=== PATIENT | female | born 2000 | race African-American/Black ===

== ENCOUNTER 2022-07-06 22:57 | Emergency (ER) | payer OTHER, SELFPAY ==
--- NOTE | ~2022-07-06 | CT_ITS ---
EXAMINATION: CT HEAD WITHOUT CONTRAST CLINICAL INFORMATION: Seizure. Evaluate for bleed. COMPARISON: None TECHNIQUE: Contiguous axial imaging was performed from the skull base to vertex without intravenous administration of contrast. This CT examination was performed using dose optimization techniques as appropriate, variously including the following: *Automated exposure control *Adjustment of mA and/or kV according to patient size (this includes techniques or standardized protocols for targeted exams where dose is matched to indication/reason for exam; i.e. extremities or head) *Use of iterative reconstruction technique DLP: 680 mGy-cm FINDINGS: There is no evidence of acute intracranial hemorrhage or territorial infarction. No abnormal mass effect or midline shift is seen. [place] to white matter differentiation is well preserved. No extra-axial fluid collections are identified. No hydrocephalus. No significant volume loss. There is no abnormal attenuation within the brain parenchyma. No acute osseous or soft tissue abnormality. The mastoid air cells and visualized portions of the paranasal sinuses are well aerated. CT/CT head/brain wo IV con IMPRESSION: No acute intracranial pathology.
--- NOTE | 2022-07-06 23:21 | ED.SEIZURE ---
HPI - Seizure General Chief Complaint: Seizure Stated Complaint: seizure Time Seen by Provider: 07/06/22 23:13 Source: EMS Mode of arrival: EMS Limitations: other (Patient is not answering questions slowly but does not her head yes and no) History of Present Illness HPI Narrative: 22-year-old female who presents emergency department for possible seizure at home. The patient is currently nonverbal but does shake her head yes and no but is slow to respond to questions. According to the paramedics they got a call from the patient stating that she had a seizure, while the patient was on the 911 call she became unresponsive and paramedics were told that the patient was in cardiac arrest. When the paramedics arrived at the scene, the patient was postictal with a were concerned that she may be having focal seizures and they gave her Versed 1.5 mg intranasally. Paramedics state that the patient had very little food in her refrigerator but did have diabetic test strips and syringes in her apartment. Information was obtained from the patient [facility] manager of case. The patient does have a history seizures with her last seizure being in 2019. She has spastic cerebral palsy, diabetes mellitus and asthma. The patient lives independently Related Data Allergies Allergy/AdvReac Type Severity Reaction Status Date / Time No Known Allergies Allergy Verified 07/06/22 23:29 Review of Systems Review of Systems: Yes all other systems are reviewed and are negative [facility] Past Medical History [facility] Narrative: Past medical history: Diabetes mellitus, spastic cerebral palsy, asthma, seizure disorder with last seizure being in 2019. Pseudoseizures, anxiety Social history: The patient lives independently in an apartment. Social History Social History Advance Directives: No Physical Exam Vital Signs: Vital Signs: Last Vital Signs Temp 98.0 F 07/06/22 23:24 Pulse 120 H 07/06/22 23:24 Resp 22 H 07/06/22 23:24 BP 139/82 07/06/22 23:24 Pulse Ox 100 07/06/22 23:24 O2 Del Method 07/06/22 23:24 BMI result Body Mass Index 19.5 Vital signs revealed elevated heart rate of 120, elevated respiratory rate of 22 with a normal O2 saturation on room air and patient was afebrile Const: Other: Patient is awake, she is nonverbal, she does shake her head yes and no in does follow simple commands, she has very short stature and features consistent with cerebral palsy HEENT: Head: Yes normal to inspection and Yes atraumatic Ears: external ears normal General nose exam: Normal external nose present Face and sinus: Yes normal facial exam Mouth: Normal oral and palatal mucosa present Throat: Yes posterior oropharynx normal Eyes: General: appearance normal, both eyes and all related structures Neck: Neck: Yes normal visual inspection, Yes no lymphadenopathy, Yes trachea midline and Yes supple Chest: Chest palpation & inspection: normal inspection of the chest and normal palpation of entire chest wall Resp: Effort & Inspection: normal respiratory effort and able to speak in complete sentences Auscultation: clear to auscultation bilaterally Cardio: Rate: regular rate Rhythm: regular rhythm Heart sounds: S1 normal heart sound present, S2 normal heart sound present and no murmurs GI: Inspection: Yes normal to inspection Palpation (GI): Soft to palpation, nontender and no guarding Auscultation: normal bowel sounds : General: Yes no CVA tenderness Back/Spine/Pelvis: Back: no CVA tenderness Skin: General skin exam: no rashes or lesions noted Neuro: Other: Patient follow simple commands, she is nonverbal, she does move extremities appropriately Extrem: General: Yes normal to inspection Medications Administered Discontinued Medications Generic Name Dose Route Start Last Admin Trade Name Freq PRN Reason Stop Dose Admin Sodium Chloride 1,000 mls @ 999 mls/hr 07/06/22 23:47 07/06/22 23:54 Ns IV 07/07/22 00:47 999 mls/hr .Q1H1M STA Administration Medical Decision Making Medical Decision Making [facility] Narrative: 22-year-old female who presents to the emergency department for possible seizure, patient was found to be postictal by paramedics but they also suspected that she may be having focal seizures and gave her Versed 1.5 mg intranasally. The patient does have history of a seizure disorder, her last seizure was in 2019. It is unclear what seizure medication she is on since I do not have a medication list and no other information on the patient. At the time my evaluation the patient was tachycardic, tachypneic, awake but nonverbal, the patient may be postictal. I did order a laboratory evaluation to include CBC, CMP, PT/INR, PTT, lipase, lactic acid, urine drug screen, urinalysis, urine test, COVID-19, influenza, RSV testing 12 EKG. Patient will be treated with normal saline x1 L. 0118: The patient is now awake and alert can answer questions. She does admit to being under lot of stress. She is not certain if she had a seizure. She states she felt as if the room was closing in on her and then she passed out . She states she has had pseudoseizures before and she believes that the sensation was more consistent with her pseudo-seizure. She has been under increased stress. The patient states that [facility] is in ordered as a santoyo that helps her mainly with transportation and she does not use them for crisis counseling. The patient will be given the number to [facility] as well pain. Patient states that due to her mobility and she use she needs an ambulance to get back to her apartment. Patient will be kept in the emergency department till we can arrange transport Differential Diagnosis Differential Diagnoses: The differential diagnosis associated with the presentation includes Seizure, pseudo-seizure, alcohol intoxication, depression, anxiety Lab Data MDM Lab Attestation statement: I reviewed the patient's lab results. My independent interpretation of the lab are as follows: Elevated lactic acid of 2.2 most likely secondary to dehydration. The rest of her labs were unremarkable. Result Diagrams: 07/06/22 23:48 07/06/22 23:48 Labs: Lab Results 07/06/22 07/06/22 07/06/22 Range/Units 23:48 23:48 23:48 WBC 5.9 (4.8-10.8) X10*3/uL RBC 4.73 (4.20-5.50) X10*6/uL Hgb 12.6 (12.0-16.0) g/dl Hct 38.1 (37.0-47.0) % MCV 80.5 (80.0-98.0) fL MCH 26.6 L (27.0-33.0) pg MCHC 33.1 (31.0-35.0) g/dl RDW 13.2 (11.0-16.0) % Plt Count 336 (160-400) X10*3/uL MPV 9.0 L (9.4-12.3) fL Immature Gran % (Auto) 0.2 (0.0-0.4) % Neut % (Auto) 60.8 (45-73) % Lymph % (Auto) 29.8 (20-40) % [place] % (Auto) 8.2 (2-11) % Eos % (Auto) 0.5 (0-4) % Baso % (Auto) 0.5 (0-2) % Lymph # (Auto) 1.8 (1.2-4.9) X10*3/uL [place] # (Auto) 0.5 (0.1-1.2) X10*3/uL Eos # (Auto) 0.0 (0.0-0.4) X10*3/uL Baso # (Auto) 0.0 (0.0-0.2) X10*3/uL Abs Immat Gran (auto) 0.01 (0.00-0.03) X10*3/uL Absolute Neuts (auto) 3.6 (2.0-8.3) x10*3/uL Absolute Nucleated RBC 0.000 (0.0-0.012) X10*3/uL Nucleated RBC % (auto) 0.0 (0.0-0.2) /100WBC PT 12.6 (10.0-13.1) SEC INR 1.1 (0.9-1.1) APTT 31.2 (26.0-36.4) SEC Sodium 139 (135-145) mmol/L Potassium 4.0 (3.3-5.1) mmol/L Chloride 106 (96-108) mmol/L Carbon Dioxide 21 L (22-29) mmol/L Anion Gap 16 (12-20) BUN 17 H (9-16) mg/dL Creatinine 0.71 (0.5-1.4) mg/dL Estim Creat Clear Calc 66.1 Estimated GFR > 60 Random Glucose 114 (60-115) mg/dL Lactic Acid (0.5-2.0) mmol/L Calcium 9.5 (8.4-10.2) mg/dL Total Bilirubin 0.3 (0.0-1.0) mg/dL AST 25 (5-31) U/L ALT 30 (0-31) U/L Alkaline Phosphatase 60 (39-117) U/L Total Protein 7.4 (6.5-8.0) g/dL Albumin 4.5 (3.5-5.0) g/dL Lipase 39 (8-78) U/L Urine Color Urine Appearance Urine pH (5.0-9.0) Ur Specific [place] (1.005-1.025) Urine Protein (Neg-Trace) mg/dL Urine Glucose (UA) (Negative) mg/dL Urine Ketones (Negative) mg/dL Urine Blood (Negative) Urine Nitrite (Negative) Ur Leukocyte Esterase (Negative) Urine Test (NEGATIVE) Urine Opiates Screen (Not Detect) Urine Fentanyl Screen (Not Detect) Ur Barbiturates Screen (Not Detect) Ur Phencyclidine Scrn (Not Detect) Ur Amphetamines Screen (Not Detect) U Benzodiazepines Scrn (Not Detect) Urine Cocaine Screen (Not Detect) U Marijuana (THC) Screen (Not Detect) Ethyl Alcohol < 10 mg/dL Influenza Type A (PCR) (Negative) Influenza Type B (PCR) (Negative) RSV RNA Qual (PCR) (Negative) SARS-CoV-2 RNA (RT-PCR) (Negative) 07/06/22 07/06/22 07/07/22 Range/Units 23:48 23:50 01:15 WBC (4.8-10.8) X10*3/uL RBC (4.20-5.50) X10*6/uL Hgb (12.0-16.0) g/dl Hct (37.0-47.0) % MCV (80.0-98.0) fL MCH (27.0-33.0) pg MCHC (31.0-35.0) g/dl RDW (11.0-16.0) % Plt Count (160-400) X10*3/uL MPV (9.4-12.3) fL Immature Gran % (Auto) (0.0-0.4) % Neut % (Auto) (45-73) % Lymph % (Auto) (20-40) % [place] % (Auto) (2-11) % Eos % (Auto) (0-4) % Baso % (Auto) (0-2) % Lymph # (Auto) (1.2-4.9) X10*3/uL [place] # (Auto) (0.1-1.2) X10*3/uL Eos # (Auto) (0.0-0.4) X10*3/uL Baso # (Auto) (0.0-0.2) X10*3/uL Abs Immat Gran (auto) (0.00-0.03) X10*3/uL Absolute Neuts (auto) (2.0-8.3) x10*3/uL Absolute Nucleated RBC (0.0-0.012) X10*3/uL Nucleated RBC % (auto) (0.0-0.2) /100WBC PT (10.0-13.1) SEC INR (0.9-1.1) APTT (26.0-36.4) SEC Sodium (135-145) mmol/L Potassium (3.3-5.1) mmol/L Chloride (96-108) mmol/L Carbon Dioxide (22-29) mmol/L Anion Gap (12-20) BUN (9-16) mg/dL Creatinine (0.5-1.4) mg/dL Estim Creat Clear Calc Estimated GFR Random Glucose (60-115) mg/dL Lactic Acid 2.2 H* (0.5-2.0) mmol/L Calcium (8.4-10.2) mg/dL Total Bilirubin (0.0-1.0) mg/dL AST (5-31) U/L ALT (0-31) U/L Alkaline Phosphatase (39-117) U/L Total Protein (6.5-8.0) g/dL Albumin (3.5-5.0) g/dL Lipase (8-78) U/L Urine Color Yellow Urine Appearance Clear Urine pH 7.0 (5.0-9.0) Ur Specific [place] 1.015 (1.005-1.025) Urine Protein Negative (Neg-Trace) mg/dL Urine Glucose (UA) Negative (Negative) mg/dL Urine Ketones Negative (Negative) mg/dL Urine Blood Negative (Negative) Urine Nitrite Negative (Negative) Ur Leukocyte Esterase Negative (Negative) Urine Test (NEGATIVE) Urine Opiates Screen (Not Detect) Urine Fentanyl Screen (Not Detect) Ur Barbiturates Screen (Not Detect) Ur Phencyclidine Scrn (Not Detect) Ur Amphetamines Screen (Not Detect) U Benzodiazepines Scrn (Not Detect) Urine Cocaine Screen (Not Detect) U Marijuana (THC) Screen (Not Detect) Ethyl Alcohol mg/dL Influenza Type A (PCR) NEGATIVE (Negative) Influenza Type B (PCR) NEGATIVE (Negative) RSV RNA Qual (PCR) NEGATIVE (Negative) SARS-CoV-2 RNA (RT-PCR) NEGATIVE (Negative) 07/07/22 07/07/22 Range/Units 01:15 01:15 WBC (4.8-10.8) X10*3/uL RBC (4.20-5.50) X10*6/uL Hgb (12.0-16.0) g/dl Hct (37.0-47.0) % MCV (80.0-98.0) fL MCH (27.0-33.0) pg MCHC (31.0-35.0) g/dl RDW (11.0-16.0) % Plt Count (160-400) X10*3/uL MPV (9.4-12.3) fL Immature Gran % (Auto) (0.0-0.4) % Neut % (Auto) (45-73) % Lymph % (Auto) (20-40) % [place] % (Auto) (2-11) % Eos % (Auto) (0-4) % Baso % (Auto) (0-2) % Lymph # (Auto) (1.2-4.9) X10*3/uL [place] # (Auto) (0.1-1.2) X10*3/uL Eos # (Auto) (0.0-0.4) X10*3/uL Baso # (Auto) (0.0-0.2) X10*3/uL Abs Immat Gran (auto) (0.00-0.03) X10*3/uL Absolute Neuts (auto) (2.0-8.3) x10*3/uL Absolute Nucleated RBC (0.0-0.012) X10*3/uL Nucleated RBC % (auto) (0.0-0.2) /100WBC PT (10.0-13.1) SEC INR (0.9-1.1) APTT (26.0-36.4) SEC Sodium (135-145) mmol/L Potassium (3.3-5.1) mmol/L Chloride (96-108) mmol/L Carbon Dioxide (22-29) mmol/L Anion Gap (12-20) BUN (9-16) mg/dL Creatinine (0.5-1.4) mg/dL Estim Creat Clear Calc Estimated GFR Random Glucose (60-115) mg/dL Lactic Acid (0.5-2.0) mmol/L Calcium (8.4-10.2) mg/dL Total Bilirubin (0.0-1.0) mg/dL AST (5-31) U/L ALT (0-31) U/L Alkaline Phosphatase (39-117) U/L Total Protein (6.5-8.0) g/dL Albumin (3.5-5.0) g/dL Lipase (8-78) U/L Urine Color Urine Appearance Urine pH (5.0-9.0) Ur Specific [place] (1.005-1.025) Urine Protein (Neg-Trace) mg/dL Urine Glucose (UA) (Negative) mg/dL Urine Ketones (Negative) mg/dL Urine Blood (Negative) Urine Nitrite (Negative) Ur Leukocyte Esterase (Negative) Urine Test NEGATIVE (NEGATIVE) Urine Opiates Screen Not Detected (Not Detect) Urine Fentanyl Screen Not Detected (Not Detect) Ur Barbiturates Screen Not Detected (Not Detect) Ur Phencyclidine Scrn Not Detected (Not Detect) Ur Amphetamines Screen Not Detected (Not Detect) U Benzodiazepines Scrn POSITIVE H (Not Detect) Urine Cocaine Screen Not Detected (Not Detect) U Marijuana (THC) Screen POSITIVE H (Not Detect) Ethyl Alcohol mg/dL Influenza Type A (PCR) (Negative) Influenza Type B (PCR) (Negative) RSV RNA Qual (PCR) (Negative) SARS-CoV-2 RNA (RT-PCR) (Negative) Independent Interpretation I performed an independent interpretation of an: EKG Interpretation: My independent interpretation of the patient's EKG done at 23:42 is as follows, sinus tachycardia with rate of 122, normal [place], QRS and QTC intervals, no ST segment elevation, no ST segment depression, no PE a sees, no PVCs, no significant T-wave abnormalities except for the tachycardia this is a normal EKG. Radiology Impression Radiologist Impression: My independent hoop machine operator of the patient's CT scan of the brain is that there was no acute bleed or fracture. Radiology impression is there is no acute intracranial pathology 9 rear with this reading. Independent Historian Clinical information obtained from an independent historian. History obtained from or confirmed by: EMS [facility] case manager Social Determinants Patient?s care significantly limited by Social Determinants of Health including: Other Social Determinant of Health Patient is supported by [facility] but does not have crisis counseling therefore she will be referred to [facility]. Discharge Plan Discharge Clinical Impression: Pseudoseizure Patient Disposition: Home, Self-Care Additional Instructions: Your blood work was normal Your COVID-19, influenza and RSV tests were negative. The CT scan of your brain revealed no skull fracture or bleeding in the brain. Your presentation today is consistent with a pseudo-seizure. I believe that this was triggered by the stress that your under from the recent of the 2 people that are close to you. It may help if you talk to a crisis counselor. [facility] ([facility]) is an outpatient service available in the community that can help you. Their phone number is . You can call them and they can help you with stress, anxiety, PTSD and depression or any other psychiatric issues that you may have Follow-up with your doctor in 2 days. Please return to the emergency department if your symptoms get worse or if you develop any symptoms that are concerning to you.
[2022-07-06 23:24] VITALS: BP 130/73; BP 139/82; PULSE 120; PULSE 140; RESP 22; TEMP 36.7; O2SAT 100; BMI 19.5
--- NOTE | 2022-07-06 23:36 | ECG_ITS ---
Test Reason : SEIZURE Blood Pressure : / mmHG Vent. Rate : 122 BPM Atrial Rate : 122 BPM P-R Int : 118 ms QRS Dur : 076 ms QT Int : 308 ms P-R-T Axes : 073 070 001 degrees QTc Int : 438 ms Sinus tachycardia Nonspecific ST abnormality Abnormal ECG No previous ECGs available Referred By: Johnathan Khan Electronically Signed By:BURKE MENDEZ MD
[2022-07-06 23:54] LABS: Basophils Percent Auto 0.5 % (0-2); Eosinophils Percent Auto 0.5 % (0-4); Hematocrit 38.1 % (37.0-47.0); Hemoglobin 12.6 g/dl (12.0-16.0); Imm Gran Abs Auto 0.01 X10*3/uL (0.00-0.03); Imm Gran Pct Auto 0.2 % (0.0-0.4); Lymphocytes Absolute Auto 1.8 X10*3/uL (1.2-4.9); Lymphocytes Percent Auto 29.8 % (20-40); MANUAL DIFF FLAG NO; Mean Corpuscular HGB Conc 33.1 g/dl (31.0-35.0); Mean Corpuscular Hemoglobin 26.6 pg (27.0-33.0); Mean Corpuscular Volume 80.5 fL (80.0-98.0); Monocytes Absolute Auto 0.5 X10*3/uL (0.1-1.2); Monocytes Percent Auto 8.2 % (2-11); Neutrophils Absolute Auto 3.6 x10*3/uL (2.0-8.3); Neutrophils Percent Auto 60.8 % (45-73); Platelet Count 336 X10*3/uL (160-400); Red Blood Count 4.73 X10*6/uL (4.20-5.50); Red Cell Distribution Width 13.2 % (11.0-16.0); White Blood Count 5.9 X10*3/uL (4.8-10.8)
[2022-07-06] MEDS: 0.9 % Sodium Chloride 1,000 ML 999 ML IV (23:54)
[2022-07-07 00:01] LABS: INTERNATIONAL NORM RATIO 1.1 (0.9-1.1); Prothrombin Time 12.6 SEC (10.0-13.1)
[2022-07-07 00:03] LABS: Partial Thromboplastin Time 31.2 SEC (26.0-36.4)
[2022-07-07 00:14] LABS: Lactic Acid 2.2 mmol/L (0.5-2.0)
[2022-07-07 00:19] LABS: Alanine Aminotransferase 30 U/L (0-31); Albumin Level 4.5 g/dL (3.5-5.0); Alkaline Phosphatase 60 U/L (39-117); Anion Gap 16 (12-20); Aspartate Amino Transferase 25 U/L (5-31); Bilirubin Total 0.3 mg/dL (0.0-1.0); Blood Urea Nitrogen 17 mg/dL (9-16); Calcium 9.5 mg/dL (8.4-10.2); Carbon Dioxide 21 mmol/L (22-29); Chloride 106 mmol/L (96-108); Creatinine Clr Calc Pharmacy 66.1; Estimated Glomerular Filt Rate > 60; Ethanol < 10 mg/dL; Glucose Random 114 mg/dL (60-115); Lipase 39 U/L (8-78); Sodium 139 mmol/L (135-145); Total Protein 7.4 g/dL (6.5-8.0)
[2022-07-07 00:32] LABS: Influenza A PCR NEGATIVE (Negative); Influenza B PCR NEGATIVE (Negative); Resp Syncy Virus RNA Qual PCR NEGATIVE (Negative); SARS COV2 PCR INHOUSE NEGATIVE (Negative)
[2022-07-07 01:23] LABS: Appearance Urine Clear; Color Urine Yellow; Glucose Urine UA Negative (Negative); Leukocyte Esterase Urine Negative (Negative); Nitrite Urine Negative (Negative); Specific Gravity - Urine 1.015 (1.005-1.025); Urine Blood Negative (Negative); Urine Ketones Negative (Negative); Urine Protein Negative (Neg-Trace)
[2022-07-07 01:24] LABS: UPreg QC Valid YES; Urine Pregnancy NEGATIVE (NEGATIVE)
[2022-07-07 01:33] LABS: Amphetamine Screen Urine Not Detected (Not Detect); Barbiturates, Urine Not Detected (Not Detect); Benzodiazepines Screen Urine POSITIVE (Not Detect); Cannabinoid Screen Urine POSITIVE (Not Detect); Cocaine Screen Urine Not Detected (Not Detect); Fentanyl, urine Not Detected (Not Detect); Opiate Screen Urine Not Detected (Not Detect); Phencyclidine Screen Urine Not Detected (Not Detect)
[2022-07-07 01:52] LABS: Reflex Lactate? Lactic Acid Added
[2022-07-07 03:43] VITALS: BP 107/50; PULSE 77; RESP 18; TEMP 36.8; O2SAT 98
--- NOTE | 2022-07-07 03:44 | PC.NURSE ---
pt A+O x 4. pt belongings packed up with pt at discharge. discharge packet provided to pt. VSS. skin pwd. iv removed at discharge. pt verbalized understanding of discharge plan. ems [employer] to bring pt home
== END 2022-07-07 03:46 | disposition home or self-care (01) ==
PROVIDERS: Emergency Provider Emergency Medicine Emergency Medical Services
DX: R56.9 Unspecified convulsions (principal); Z79.899 Other long term (current) drug therapy; Z20.822 Contact with and (suspected) exposure to COVID-19
CPT/HCPCS: 0241U; 36415; 70450; 80053; 80307; 81003; 81025; 82077; 83605; 83690; 85025; 85610; 85730; 93005; 99284

== ENCOUNTER 2022-11-21 14:11 | Inpatient (IN) | payer OTHER, SELFPAY ==
[2022-11-21 14:24] VITALS: BP 155/74; BP 160/70; PULSE 110; PULSE 118; RESP 16; TEMP 36.6; O2SAT 97; BMI 22.9
--- NOTE | 2022-11-21 14:48 | PC.NURSE ---
Hearing voices, pt reports never having this happen before. Voices are telling her to hurt herself however she does not want to hurt herself.
--- NOTE | 2022-11-21 15:00 | ED_ITS ---
HPI - Psych General Chief Complaint: Psychiatric Symptoms Stated Complaint: seizure postictal per ems Time Seen by Provider: 11/21/22 14:51 Source: patient and EMS Mode of arrival: EMS Limitations: no limitations History of Present Illness HPI Narrative: 22 yo female with history of DM, spastic cerebral palsy, asthma, seizure disorder, pseudoseizures who presents to the ER for evaluation after she had an unwitnessed seizure at home. She reports not being on any seizure medication. She reports recently restarting Cymbalta, took 30 mg yesterday and 30 mg today. She used to be on 60 mg in the past but has been off of it for a long time. She added it back because her anxiety was high. She reports after taking the Cymblata she developed auditory hallucinations with voices telling her to harm herself. She states the voices told her to drink soap today. She said she did but does not know how much she drank. No vomiting. She denies any other ingestions. No drugs or alcohol. MD complaint: feels depressed and hallucinations Onset (ago): day(s) (2) Duration: getting worse History of same: Yes Relieving factors: none Exacerbating factors: medication Context: new medication(s) and significant life stressor Associated psychiatric symptoms: racing thoughts and auditory hallucinations Associated symptoms: confusion and nausea Treatments prior to arrival: placed on mental health hold If self harm: admits thoughts of self harm and has acted on plan Related Data Allergies Allergy/AdvReac Type Severity Reaction Status Date / Time No Known Allergies Allergy Verified 07/06/22 23:29 Review of Systems Review of Systems: Yes all other systems are reviewed and are negative [facility] Social History Social History Advance Directives: No Advance Directives Information Provided: No Physical Exam Vital Signs: Vital Signs: Last Vital Signs Temp 97.8 F 11/21/22 14:24 Pulse 118 H 11/21/22 14:24 Resp 16 11/21/22 14:24 BP 155/74 H 11/21/22 14:24 Pulse Ox 97 11/21/22 14:24 O2 Del Method Room Air 11/21/22 14:24 BMI result Body Mass Index 22.9 Appearance: Alert. Oriented X3. No acute distress. Head: normocephalic, atraumatic. Eyes: Pupils equal, round and reactive to light. ENT: Pharynx normal. No tonsillar swelling or exudate. Neck: Normal inspection. Neck supple. CVS: Normal heart rate and rhythm. Pulses normal. Respiratory: No respiratory distress. Breath sounds normal. Abdomen: Soft and nontender. +BS x4 Skin: Skin warm and dry. Normal skin color. Normal skin turgor. No rashes. Extremities: No lower extremity edema. No joint swelling. Neuro/psych: Oriented X 3. No motor deficit. No sensory deficit. CN II-XII intact. Normal speech and cognition. Does not make eye contact, varying mood, poor insight and judgment, anxious Course Reevaluation(s) Reevaluation #1: medical workup unremarkable. pending utox will place pt in physician obs. Physician observation started at 15:54. Patient placed in physician observation because patient is awaiting CARE team evaluation for the possible need of inpatient psych admission. At the time observation was started patient's vital signs were stable. Patient is alert and oriented. Neuro exam is non-focal. CV: RRR and lungs are clear. Will continue to monitor. Time: 15:54 Medical Decision Making Medical Decision Making [facility] Narrative: 22 yo female with history of DM, spastic cerebral palsy, asthma, seizure disorder, pseudoseizures who presents to the ER for evaluation after she had a possible unwitnessed seizure at home. HX recent visit to ER for pseudoseizures. Neurologically intact on arrival. Not post-ictal. Differential Diagnosis Differential Diagnoses: The differential diagnosis associated with the presentation includes recurrent seizure, pseudoseizure, substance induced mood disorder, acute psychosis, schizophrenia, schizoaffective disorder, PTSD, bipolar disorder, mari r depression with psychotic features Admission/Observation Consideration of admission/observation: Escalation of care including admission/o bservation considered Lab Data [facility] Lab Attestation statement: I reviewed the patient's lab results. 11/21/22 15:20 11/21/22 15:20 Labs: Lab Results 11/21/22 11/21/22 11/21/22 Range/Units 15:17 15:20 15:20 WBC 4.8 (4.8-10.8) X10*3/uL RBC 5.19 (4.20-5.50) X10*6/uL Hgb 13.3 (12.0-16.0) g/dl Hct 40.6 (37.0-47.0) % MCV 78.2 L (80.0-98.0) fL MCH 25.6 L (27.0-33.0) pg MCHC 32.8 (31.0-35.0) g/dl RDW 13.7 (11.0-16.0) % Plt Count 275 (160-400) X10*3/uL MPV 9.1 L (9.4-12.3) fL Immature Gran % (Auto) 0.0 (0.0-0.4) % Neut % (Auto) 62.6 (45-73) % Lymph % (Auto) 28.3 (20-40) % [place] % (Auto) 8.1 (2-11) % Eos % (Auto) 0.6 (0-4) % Baso % (Auto) 0.4 (0-2) % Lymph # (Auto) 1.4 (1.2-4.9) X10*3/uL [place] # (Auto) 0.4 (0.1-1.2) X10*3/uL Eos # (Auto) 0.0 (0.0-0.4) X10*3/uL Baso # (Auto) 0.0 (0.0-0.2) X10*3/uL Abs Immat Gran (auto) 0.00 (0.00-0.03) X10*3/uL Absolute Neuts (auto) 3.0 (2.0-8.3) x10*3/uL Absolute Nucleated RBC 0.000 (0.0-0.012) X10*3/uL Nucleated RBC % (auto) 0.0 (0.0-0.2) /100WBC Sodium 141 (135-145) mmol/L Potassium 3.6 (3.3-5.1) mmol/L Chloride 107 (96-108) mmol/L Carbon Dioxide 27 (22-29) mmol/L Anion Gap 11 L (12-20) BUN 10 (9-16) mg/dL Creatinine 0.65 (0.5-1.4) mg/dL Estim Creat Clear Calc 81.3 Estimated GFR > 60 Random Glucose 82 (60-115) mg/dL Calcium 9.9 (8.4-10.2) mg/dL Magnesium 2.1 (1.6-2.6) mg/dL Total Bilirubin 0.5 (0.0-1.0) mg/dL Direct Bilirubin 0.1 (0.0-0.5) mg/dL AST 19 (5-31) U/L ALT 15 (0-31) U/L Alkaline Phosphatase 66 (39-117) U/L Total Creatine Kinase 105 (26-140) U/L Total Protein 7.3 (6.5-8.0) g/dL Albumin 4.4 (3.5-5.0) g/dL Ethyl Alcohol < 10 mg/dL COVID-19 (JOHANNY) Negative (Negative) COVID-19 Clin Com See Note Independent Historian Clinical information obtained from an independent historian. History obtained from or confirmed by: EMS External Record Review External record reviewed: Outpatient record, Prior outpatient labs and Prior outpatient radiology Prescription Management I considered prescription management with: Other (antipsychotic) Chronic Conditions Patient?s care impacted by: Other (anxiety) Discharge Plan Discharge Clinical Impression: Auditory hallucination Patient Disposition: Still a Patient Interventions: [place]-Suicide Risk Severity Scale Last Done: 11/21/22 14:28
[2022-11-21 15:29] LABS: MANUAL DIFF FLAG NO
[2022-11-21 15:32] LABS: Basophils Percent Auto 0.4 % (0-2); Eosinophils Percent Auto 0.6 % (0-4); Hematocrit 40.6 % (37.0-47.0); Hemoglobin 13.3 g/dl (12.0-16.0); Lymphocytes Absolute Auto 1.4 X10*3/uL (1.2-4.9); Lymphocytes Percent Auto 28.3 % (20-40); Mean Corpuscular HGB Conc 32.8 g/dl (31.0-35.0); Mean Corpuscular Hemoglobin 25.6 pg (27.0-33.0); Mean Corpuscular Volume 78.2 fL (80.0-98.0); Mean Platelet Volume 9.1 fL (9.4-12.3); Monocytes Absolute Auto 0.4 X10*3/uL (0.1-1.2); Monocytes Percent Auto 8.1 % (2-11); Neutrophils Percent Auto 62.6 % (45-73); Platelet Count 275 X10*3/uL (160-400); Red Blood Count 5.19 X10*6/uL (4.20-5.50); Red Cell Distribution Width 13.7 % (11.0-16.0); White Blood Count 4.8 X10*3/uL (4.8-10.8)
[2022-11-21 15:44] LABS: COVID-19 Test Negative (Negative); IDNOW Serial# BCCEAD1C
[2022-11-21 15:50] LABS: Alanine Aminotransferase 15 U/L (0-31); Albumin Level 4.4 g/dL (3.5-5.0); Alkaline Phosphatase 66 U/L (39-117); Aspartate Amino Transferase 19 U/L (5-31); Bilirubin Direct 0.1 mg/dL (0.0-0.5); Bilirubin Total 0.5 mg/dL (0.0-1.0); Blood Urea Nitrogen 10 mg/dL (9-16); Calcium 9.9 mg/dL (8.4-10.2); Carbon Dioxide 27 mmol/L (22-29); Chloride 107 mmol/L (96-108); Creatinine Clr Calc Pharmacy 81.3; Estimated Glomerular Filt Rate > 60; Ethanol < 10 mg/dL; Glucose Random 82 mg/dL (60-115); Magnesium 2.1 mg/dL (1.6-2.6); Potassium 3.6 mmol/L (3.3-5.1); Sodium 141 mmol/L (135-145); Total Protein 7.3 g/dL (6.5-8.0)
[2022-11-21 15:52] LABS: Anion Gap 11 (12-20)
[2022-11-21 17:03] LABS: Acetaminophen LAB < 17 mcg/mL (<30); Salicylate < 5.0 mg/dL (15-30)
--- NOTE | 2022-11-21 17:26 | PC.NURSE ---
Pt denies hearing any voices at this time, states she thinks it was due to the medication change. Continues to deny si/hi, awaiting care team consult
[2022-11-21 18:29] VITALS: BP 108/55; PULSE 65; RESP 18; TEMP 36.9; O2SAT 97
[2022-11-21] MEDS: Acetaminophen 325 MG TABLET 650 MG PO (18:45)
--- NOTE | 2022-11-21 21:02 | PC.NURSE ---
Pt resting quietly in bed at this time. Pt is A&Ox4, GCS 15. Pt reports she is not hearing voices or seeing anything at this time but reports that earlier, the voices were telling her to hurt herself. Pt would not disclose how they said to hurt herself. Pt denies any suicidal or homicidal thoughts at this time. Pt is being changed into behavioral health attire and belongings are secured. Pt phone is charging at the attendance secretary's desk at this time. Pt is aware that we are waiting for a urine sample, stated she will let us know when she needs to void.
--- NOTE | 2022-11-21 21:14 | PC.NURSE ---
This RN contacting the Care Team regarding consult. Per Care Team, they have been waiting for UA prior to eval. Per Care Team, they messaged the nurse to make her aware of the reason for the delay in the eval. hyperbaric technologist at bedside attempting to obtain UA.
[2022-11-21 21:33] LABS: Appearance Urine Clear; Color Urine Yellow; Glucose Urine UA Negative (Negative); Leukocyte Esterase Urine Negative (Negative); Nitrite Urine Negative (Negative); Specific Gravity - Urine 1.015 (1.005-1.025); Urine Blood Negative (Negative); Urine Ketones Negative (Negative); Urine Protein Negative (Neg-Trace)
[2022-11-21 21:35] LABS: UPreg QC Valid YES; Urine Pregnancy NEGATIVE (NEGATIVE)
[2022-11-21 21:43] LABS: Amphetamine Screen Urine Not Detected (Not Detect); Barbiturates, Urine Not Detected (Not Detect); Benzodiazepines Screen Urine Not Detected (Not Detect); Cannabinoid Screen Urine Not Detected (Not Detect); Cocaine Screen Urine Not Detected (Not Detect); Fentanyl, urine Not Detected (Not Detect); Opiate Screen Urine Not Detected (Not Detect); Phencyclidine Screen Urine Not Detected (Not Detect)
--- NOTE | 2022-11-21 21:45 | PC.NURSE ---
Suzie RN speaking to HAIDER as pt has become increasingly anxious and is now requesting to leave. This RN contacting Care Team regarding an ETA for eval due to increasing anxiety and her requests to leave. Sitter at bedside due to vague SI.
--- NOTE | 2022-11-21 22:16 | PC.NURSE ---
Care Team at bedside for eval.
--- NOTE | 2022-11-21 22:48 | PC.NURSE ---
Per Garth from the Care Team, plan for patient to be placed on a Section 12 and to be an inpatient bedsearch.
[2022-11-21 22:54] VITALS: BP 117/75; PULSE 88; RESP 16; TEMP 36.7; O2SAT 97
--- NOTE | 2022-11-21 23:10 | PC.NURSE ---
Care Team at bedside notifying patient of Sec [address] Pt aware that she is unable to leave at this time. Pt crying, tearful while discussing plan with Garth.
--- NOTE | 2022-11-22 01:25 | PC.NURSE ---
PHONE NUMBERS [phone] A Geothermal Technician - Sarah Primary contact, is the person to call if pt needs anything from home [phone] Acute Care - call for transportation at discharge [phone] Brother - Gume
--- NOTE | 2022-11-22 01:32 | PC.NURSE ---
Pt resting quietly at this time. Pt is on a section 12, she has been changed over and has a sitter at the bedside. Pt has no complaints at this time. Pt is an inpatient bedsearch at this time.
[2022-11-22 01:40] VITALS: BP 117/64; PULSE 65; RESP 16; TEMP 36.6; O2SAT 98
[2022-11-22] MEDS: LORazepam 1 MG TABLET PO (04:51)
--- NOTE | 2022-11-22 04:58 | PC.NURSE ---
Pt requesting something for anxiety. verbal ordered 1mg ativan PO. Pt stated that she is hearing multiple personalities. saying the positive one is fearful, the negative one is telling her you're gonna , you're gonna . Pt stated she can hear all of the personalities and it gets loud inside. Pt reported she dealt with similar episodes when she was younger and managed to control it, but has been unable to control it this time. Pt had moments in conversation where she looked off into the distance, occasionally talking to the voices. Pt remains calm and cooperative with a sitter at the bedside. Waiting bedsearch in the morning.
[2022-11-22 06:29] VITALS: RESP 17
[2022-11-22 08:30] VITALS: RESP 16
--- NOTE | 2022-11-22 09:39 | PHA.MEDREC ---
Pharmacy Consult ? Medication Reconciliation Pharmacy has completed the medication reconciliation. Patient is not divulging information to us at this time. Per rn case management, only aware of duloxetine but does state that patient is very select on who she divulges information to bailee
--- NOTE | 2022-11-22 10:16 | MHC.CARE ---
DDU inpatient bedsearch exhausted due to bed availability. Per [facility] no DDU beds available today. RAD Team will follow up and search will continue tomorrow if deemed necessary.
--- NOTE | 2022-11-22 11:06 | MHC.CARE ---
CARE Team met spoke with Pts DDS worker Aníbal [phone] who reported she is new to client. She reported she has DDS services for developmental disability. ?She reports that she has historical dx of mood disorder, anxiety disorder, depressive disorder. Pt additionally has asthma and cerebral palsy. ?Pt currently lives in a MHA apartment alone. Pts MHA contacts are Sarah - [employer]? ([phone]) and Kayla ([phone]). Pt utilizes [facility] for psychiatric services and sees Leonardo Singh and she is unaware of Pts therapists name as Pt declines DDS movie shot cameraman that information. Pt uses [facility] ([phone]) for transportation services and has Brother Gume ([phone]).
--- NOTE | 2022-11-22 14:02 | PC.NURSE ---
Sarah who is her supervisor photostat would like to be called with any updates and her cell number [phone]
[2022-11-23 01:06] VITALS: BP 118/63; PULSE 67; RESP 16; TEMP 36.6; O2SAT 100
--- NOTE | 2022-11-23 04:23 | PC.NURSE ---
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
[2022-11-23 10:59] VITALS: BP 127/81; PULSE 96; TEMP 36.2; O2SAT 98
--- NOTE | 2022-11-23 16:00 | PC.ADMIT ---
pt is a 22 year old female admitted from [facility] pod secondary to command hallucinations telling her to harm herself, after reportedly starting Cymbalta again. Pt reported voices told her to drink liquid hand soap and she complied. Pts S supervisor finishing room called police and EMS. Pt reports that she also was told to cut herself and that she almost did. Pt reporting 4 different personalities. Pt resides at [facility] independent supervised living. Pt has CP and ambulates with bilateral crutches. Pt has Hx of spastic CP, asthma, seizure and pseudo seizure disorders. Pt came up to floor at 10:15 and admission process was completed. Provider was notified, Treatment plan done, patient placed on 5 minute checks to monitor for safety. Patient was cooperative and participated in the admission process.
[2022-11-23 18:00] VITALS: BP 115/64; PULSE 82; TEMP 36.6; O2SAT 96
[2022-11-24 06:00] VITALS: BP 113/66; PULSE 76; RESP 18
[2022-11-24 08:08] LABS: Cholesterol 221 mg/dL; HDL Cholesterol 64 mg/dL; LDL Cholesterol Calculated 146 mg/dl; Triglycerides 57 mg/dL
[2022-11-24] MEDS: lamoTRIgine 25 MG TABLET PO (08:18)
[2022-11-24 08:24] LABS: Free T4 (Free Thyroxine) 1.08 ng/dL (0.71-1.85)
[2022-11-24 08:30] LABS: Estimated Average Glucose 100 mg/dL; Hemoglobin A1c % 5.1 %
[2022-11-24 08:36] LABS: Folate 17.1 ng/mL (> or = 4.0); Thyroid Stimulating Hormone 1.13 uIU/mL (0.32-4.0); Vitamin B12 500 pg/mL (200-900)
--- NOTE | 2022-11-24 13:54 | PC.NURSE ---
Pt signed a 3 day notice today. 3 day will be up on 11/28/22. Doctor and social work notified.
--- NOTE | 2022-11-24 15:41 | P.HPPS_ITS ---
HPI Date of Service: 11/23/22 Chief Complaint: Psychosis, spastic cerebal palsy, seizure disorder Sources of Information: patient interviewed, chart reviewed and crisis/core team assessment reviewed HPI Subjective Notes: Conditional Voluntary and 3 Day Narrative: 22 yo female, referred by DDS as they manage her supervised apartment for CAH to self harm. Reports stopping meds 4 months ago (Cymbalta) and restarting with sx of voices telling her to self harm and suicide. Reports she has four different personalities- a child, a fearful person, an angry person, and an aggressive male dominent person. Past Psychiatric History: IP: Affirms, not aware of details-for anxiety, depression. CHD: Dr. Singh SA: Denies Trials: Remeron, Atarax, Sertraline, Cymbalta Medical Evaluation Reviewed: Yes [facility] Medical History (Updated 11/24/22 @ 15:58 by Tressa Mora, TROUBLE DISPATCHER) PTSD (post-traumatic stress disorder) Narrative: DM Spastic Cerebral Palsy Asthma Seizure Disorder Pseudoseizure Disorder Family History: Both parents with mental health and substance use issues Social History: Lives in a DDS supervised living apartment Childhood and upbringing were traumatic, as a result she did not want to have too much discussion about these Substance History: she denies Trauma History: Affirms Diagnostics Vital Signs (24Hr): Vital Signs - 24 hr 11/23/22 18:00 11/24/22 06:00 Temperature 97.9 F Pulse Rate 82 76 Respiratory Rate 18 Blood Pressure 115/64 113/66 Pulse Oximetry 96 Oxygen Delivery Method Room Air Room Air BMI result Body Mass Index 22.9 Labs 11/21/22 15:20 11/21/22 15:20 Labs: Laboratory Results - last 48 hr 11/24/22 11/24/22 11/24/22 07:10 07:10 07:10 Estimat Average Glucose 100 Hemoglobin A1c % 5.1 Magnesium 2.0 Triglycerides 57 Cholesterol 221 LDL Cholesterol, Calc 146 HDL Cholesterol 64 Vitamin B12 500 Folate 17.1 TSH 1.13 Free T4 1.08 Meds/Allergies Meds Home Medications Medication Instructions Recorded Confirmed Type duloxetine 30 mg capsule,delayed 30 mg PO DAILY 11/22/22 11/22/22 History release Allergies Allergies Allergy/AdvReac Type Severity Reaction Status Date / Time sertraline [From Zoloft] Allergy Unknown Verified 11/22/22 11:19 Mental Status Exam Mental Status Exam Patient Appearance: Appropriate Patient Orientation: Person, Place, Time and Situation Level of Consciousness: Alert Patient Behavior: Appropriate, Talkative, Cooperative and Good Eye Contact Mood Description: Depressed, Anxious and Apprehensive Affect Description: Flat Patient Cognition Impaired: No Ability to Follow Directions: Good Speech Pattern: Spontaneous Speech Memory Description: Episodic Impaired Hallucinations: Auditory Perceptual Disturbances: Depersonalization and Derealization Thought Process: Distracted and Rumination Thought Content: positive for [place], positive for Circumstantial and positive for Suicidal Ideation Depressive Symptoms: Increased Anxiety and Thoughts of /Suicide Judgement: Fair Assessment & Plan Assessment & Plan (1) PTSD (post-traumatic stress disorder): Status: Acute Code(s): F43.10 - Post-traumatic stress disorder, unspecified Plan 22 yo female, resident of a DDS supervised apartment to ER with reports of CAH to self harm due to her report of different personalities presenting with different mood states. Reports CAH after she re-started Cymbalta after several months of not taking this medication. Plan: Olanzapine 5 mg q 4 h prn psychosis Lamictal 25 mg daily Patient educated on: diagnosis, medication risk/benefits and therapeutic strategies Informed Consent: further education needed Reason for continued inpatient stay Substantial Risk for: rapid decompensation Statement Statement: I have reviewed the history and physical and performed a pertinent examination on my patient. No changes have occurred unless specified. If the History and Physical was not performed prior to admission, the Hospitalist's service will be consulted for completing the admission physical. Time Spent With Patient Time: Total time managing care of this patient today ____ minutes.
--- NOTE | 2022-11-24 16:02 | P.PNPSI_ITS ---
Subjective Subjective Date of Service: 11/24/22 Reason For Visit: Psychosis, spastic cerebal palsy, seizure disorder Subjective Notes: Conditional Voluntary and 3 Day Interim History: Three day notice filed. Has important ortho appts on 11/27 and 11/29- CT at [facility] on 11/29 to learn of options for left leg procedure. Reports feeling improved. Tolerating Lamictal. Open to PTSD education. Discussed Remeron trial, 3.75 mg hs-she has used Remeron before with positive ef fect Engaged with peers in milieu. Asking to discharge on 11/26. Checks changed to 15 minute Reviewed with team. Medication Compliance: Yes Side effects from medications: No Attending Groups: Yes Review of Systems Acute medical concerns: No Medical Review of Systems: unchanged Mental Status Exam Mental Status Exam Patient Appearance: Appropriate Patient Orientation: Person, Place, Time and Situation Level of Consciousness: Alert Patient Behavior: Appropriate, Talkative, Cooperative and Good Eye Contact Mood Description: Depressed and Apprehensive Affect Description: Flat Patient Cognition Impaired: No Ability to Follow Directions: Good Speech Pattern: Spontaneous Speech Memory Description: Episodic Impaired Perceptual Disturbances: Depersonalization and Derealization Thought Process: Distracted and Rumination Thought Content: positive for [place] and positive for Circumstantial Depressive Symptoms: Increased Anxiety Judgement: Good Diagnostics Vital Signs (24Hr): Vital Signs - 24 hr 11/23/22 18:00 11/24/22 06:00 Temperature 97.9 F Pulse Rate 82 76 Respiratory Rate 18 Blood Pressure 115/64 113/66 Pulse Oximetry 96 Oxygen Delivery Method Room Air Room Air BMI result Body Mass Index 22.9 Labs 11/21/22 15:20 11/21/22 15:20 Labs: Laboratory Results - last 48 hr 11/24/22 11/24/22 11/24/22 07:10 07:10 07:10 Estimat Average Glucose 100 Hemoglobin A1c % 5.1 Magnesium 2.0 Triglycerides 57 Cholesterol 221 LDL Cholesterol, Calc 146 HDL Cholesterol 64 Vitamin B12 500 Folate 17.1 TSH 1.13 Free T4 1.08 Medications Medications Current Medications Acetaminophen (Acetaminophen 325 Mg Tablet) 650 mg PO Q6H PRN PRN Reason: Headache/Pain Mild Scale (1-3) Lamotrigine (Lamotrigine 25 Mg Tablet) 25 mg PO DAILY [facility] Last Admin: 11/24/22 08:18 Dose: 25 mg Magnesium Hydroxide (Milk Of Magnesia 30 Ml Oral.Susp) 30 ml PO DAILY PRN PRN Reason: Constipation Olanzapine (Olanzapine 5 Mg Tablet) 5 mg PO Q4H PRN PRN Reason: psychosis Pharmacy Consult (Consult Rx Perform Med Rec) 1 each MISCELLANE ONCE PRN PRN Reason: Consult order Trazodone HCl (Trazodone Hcl 50 Mg Tablet) 50 mg PO BEDTIME MRX1 PRN PRN Reason: Insomnia Allergies Allergies Allergy/AdvReac Type Severity Reaction Status Date / Time sertraline [From Zoloft] Allergy Unknown Verified 11/22/22 11:19 Assessment & Plan Assessment & Plan (1) PTSD (post-traumatic stress disorder): Status: Acute Code(s): F43.10 - Post-traumatic stress disorder, unspecified Plan 22 yo female, resident of a DDS supervised apartment to ER with reports of CAH to self harm due to her report of different personalities presenting with different mood states. Reports CAH after she re-started Cymbalta after several months of not taking this medication. Plan: Olanzapine 5 mg q 4 h prn psychosis Lamictal 25 mg daily 11/24/22- Three day notice of intent filed- pt reports she has important ortho appts to attend. Mirtazapine 3.75 mg HS Patient educated on: other Informed Consent: understands and further education needed Reason for continued inpatient stay Substantial Risk for: rapid decompensation Time Spent With Patient Time: Total time managing care of this patient today ____ minutes.
[2022-11-24 18:00] VITALS: BP 108/62; PULSE 93; TEMP 37.2; O2SAT 99
[2022-11-25 06:00] VITALS: BP 112/74; PULSE 80; RESP 16; TEMP 36.6
[2022-11-25] MEDS: lamoTRIgine 25 MG TABLET PO (09:11)
--- NOTE | 2022-11-25 14:54 | HO.PSYCHPN ---
Subjective Subjective Date of Service: 11/25/22 Reason For Visit: Psychosis, spastic cerebal palsy, seizure disorder Subjective Notes: Conditional Voluntary and 3 Day Interim History: Pt reports feeling calmer, but reports is hard to be here. She denies suicidal or homicidal ideation. She reports sleep is poor here and at home. She denies VH/AH. She does not report delusional content nor she does appear internally preoccupied. She reports she is here due to medication mistake. Pt tearful when talking about losing people throughout her life. She reports I grew up in the system, I have no one. Medication Compliance: Yes Review of Systems Review of Systems Yes all other systems are reviewed and are negative Reports behavioral changes Psychiatric: Reports anxiety, Reports behavioral changes, Reports depression, Reports difficulty concentrating, Reports auditory hallucinations, Reports hopelessness, Reports irritability, Reports anhedonia, Reports mood swings, Reports paranoia and Reports suicidal ideation Mental Status Exam Mental Status Exam Patient Appearance: Appropriate Patient Orientation: Person, Place, Time and Situation Level of Consciousness: Alert Patient Behavior: Appropriate, Talkative, Cooperative and Good Eye Contact Mood Description: Depressed and Apprehensive Affect Description: Flat Patient Cognition Impaired: No Ability to Follow Directions: Good Speech Pattern: Spontaneous Speech Memory Description: Episodic Impaired Diagnostics Vital Signs (24Hr): Vital Signs - 24 hr 11/24/22 18:00 11/25/22 06:00 Temperature 99 F 98 F Pulse Rate 93 80 Respiratory Rate 16 Blood Pressure 108/62 112/74 Pulse Oximetry 99 Oxygen Delivery Method Room Air BMI result Body Mass Index 22.9 Labs 11/21/22 15:20 11/21/22 15:20 Labs: Laboratory Results - last 48 hr 11/24/22 11/24/22 11/24/22 07:10 07:10 07:10 Estimat Average Glucose 100 Hemoglobin A1c % 5.1 Magnesium 2.0 Triglycerides 57 Cholesterol 221 LDL Cholesterol, Calc 146 HDL Cholesterol 64 Vitamin B12 500 Folate 17.1 TSH 1.13 Free T4 1.08 Medications Medications Current Medications Acetaminophen (Acetaminophen 325 Mg Tablet) 650 mg PO Q6H PRN PRN Reason: Headache/Pain Mild Scale (1-3) Lamotrigine (Lamotrigine 25 Mg Tablet) 25 mg PO DAILY [facility] Last Admin: 11/25/22 09:11 Dose: 25 mg Magnesium Hydroxide (Milk Of Magnesia 30 Ml Oral.Susp) 30 ml PO DAILY PRN PRN Reason: Constipation Olanzapine (Olanzapine 5 Mg Tablet) 5 mg PO Q4H PRN PRN Reason: psychosis Pharmacy Consult (Consult Rx Perform Med Rec) 1 each MISCELLANE ONCE PRN PRN Reason: Consult order Trazodone HCl (Trazodone Hcl 50 Mg Tablet) 50 mg PO BEDTIME MRX1 PRN PRN Reason: Insomnia Allergies Allergies Allergy/AdvReac Type Severity Reaction Status Date / Time sertraline [From Zoloft] Allergy Unknown Verified 11/22/22 11:19 Assessment & Plan Assessment & Plan (1) PTSD (post-traumatic stress disorder): Status: Acute Code(s): F43.10 - Post-traumatic stress disorder, unspecified Plan 22 yo female, resident of a DDS supervised apartment to ER with reports of CAH to self harm due to her report of different personalities presenting with different mood states. Reports CAH after she re-started Cymbalta after several months of not taking this medication. Plan: Olanzapine 5 mg q 4 h prn psychosis Lamictal 25 mg daily 11/24/22- Three day notice of intent filed- pt reports she has important ortho appts to attend. Mirtazapine 3.75 mg HS 11/25 continue tx. taking meds. 3 day. Reason for continued inpatient stay Substantial Risk for: harm to self Time Spent With Patient Time: Total time managing care of this patient today ____ minutes.
[2022-11-25 20:15] VITALS: BP 122/74; PULSE 78; TEMP 37; O2SAT 98
[2022-11-25] MEDS: OLANZapine 5 MG TABLET PO (20:23)
[2022-11-26 08:40] VITALS: BP 113/63; PULSE 64; RESP 18; TEMP 36.8; O2SAT 100
[2022-11-26] MEDS: lamoTRIgine 25 MG TABLET PO (09:46)
[2022-11-26 18:00] VITALS: BP 123/76; PULSE 80
--- NOTE | 2022-11-26 19:29 | HO.PSYCHPN ---
Subjective Subjective Date of Service: 11/26/22 Reason For Visit: Psychosis, spastic cerebal palsy, seizure disorder Subjective Notes: Conditional Voluntary and 3 Day Healthcare Proxy: No Guardianship: No Medical Problems Affecting Mental Status: No Interim History: Preparing for discharge as she has ortho appointments on 11/26 that have taken a significant time to schedule. Expressed anger with her out patient team for her perceived lack of support. States she takes responsibility for her health care and appointments and most of the time, feels treated as a child by the DDS team and not respected. States this increases her anxiety, then I will blackout and the personalities come up . Prefers weekly therapy and does have interest in [facility] and [facility]. Appt with Dr. Singh was rescheduled as she is a hospital discharge. Medication Compliance: Yes Side effects from medications: No Attending Groups: Yes Review of Systems Acute medical concerns: No Medical Review of Systems: unchanged Mental Status Exam Mental Status Exam Patient Appearance: Appropriate Patient Orientation: Person, Place, Time and Situation Level of Consciousness: Alert Patient Behavior: Appropriate, Talkative, Cooperative and Good Eye Contact Mood Description: Depressed and Apprehensive Affect Description: Flat Patient Cognition Impaired: No Ability to Follow Directions: Good Speech Pattern: Spontaneous Speech Memory Description: Episodic Impaired Diagnostics Vital Signs (24Hr): Vital Signs - 24 hr 11/25/22 20:15 11/26/22 08:40 11/26/22 18:00 Temperature 98.6 F 98.2 F Pulse Rate 78 64 80 Respiratory Rate 18 Blood Pressure 122/74 113/63 123/76 Pulse Oximetry 98 100 Oxygen Delivery Method Room Air Room Air BMI result Body Mass Index 22.9 Labs 11/21/22 15:20 11/21/22 15:20 Medications Medications Current Medications Acetaminophen (Acetaminophen 325 Mg Tablet) 650 mg PO Q6H PRN PRN Reason: Headache/Pain Mild Scale (1-3) Lamotrigine (Lamotrigine 25 Mg Tablet) 25 mg PO DAILY [facility] Last Admin: 11/26/22 09:46 Dose: 25 mg Magnesium Hydroxide (Milk Of Magnesia 30 Ml Oral.Susp) 30 ml PO DAILY PRN PRN Reason: Constipation Olanzapine (Olanzapine 5 Mg Tablet) 5 mg PO Q4H PRN PRN Reason: psychosis Olanzapine (Olanzapine 5 Mg Tablet) 5 mg PO BEDTIME [facility] Last Admin: 11/26/22 18:58 Dose: Not Given Pharmacy Consult (Consult Rx Perform Med Rec) 1 each MISCELLANE ONCE PRN PRN Reason: Consult order Trazodone HCl (Trazodone Hcl 50 Mg Tablet) 50 mg PO BEDTIME MRX1 PRN PRN Reason: Insomnia Allergies Allergies Allergy/AdvReac Type Severity Reaction Status Date / Time sertraline [From Zoloft] Allergy Unknown Verified 11/22/22 11:19 Assessment & Plan Assessment & Plan (1) PTSD (post-traumatic stress disorder): Status: Acute Code(s): F43.10 - Post-traumatic stress disorder, unspecified Plan 22 yo female, resident of a DDS supervised apartment to ER with reports of CAH to self harm due to her report of different personalities presenting with different mood states. Reports CAH after she re-started Cymbalta after several months of not taking this medication. Plan: Olanzapine 5 mg q 4 h prn psychosis Lamictal 25 mg daily 11/24/22- Three day notice of intent filed- pt reports she has important ortho appts to attend. Mirtazapine 3.75 mg HS 11/25 continue tx. taking meds. 3 day. Patient educated on: medication risk/benefits and therapeutic strategies Informed Consent: understands Reason for continued inpatient stay Substantial Risk for: rapid decompensation Time Spent With Patient Time: Total time managing care of this patient today ____ minutes.
[2022-11-27] MEDS: lamoTRIgine 25 MG TABLET PO (09:36)
[2022-11-27 09:39] VITALS: BP 129/66; PULSE 73; RESP 18; TEMP 36.4; O2SAT 100
--- NOTE | 2022-11-27 13:45 | P.DS_ITS ---
DS: Providers Provider Date of Service: 11/27/22 Date of admission: 11/23/22 10:15 Date of discharge: 11/27/22 Primary care physician: Casey Johnson III, MD Admitting clinician: Tressa Mora Attending physician on admission: Enrique De Anda Attending physician on discharge: Enrique De Anda Discharging clinician: Tressa Mora DS: Diagnosis Discharge Diagnosis (1) PTSD (post-traumatic stress disorder): Status: Acute DS: Medications Discharge Medications Home Medications: Previous Rx's Medication Instructions Recorded lamotrigine 25 mg tablet 25 mg PO DAILY #30 tabs 11/26/22 olanzapine 5 mg tablet 5 mg PO BEDTIME #15 tabs 11/26/22 Mental Status Exam Mental Status Exam Patient Appearance: Appropriate Patient Orientation: Person, Place, Time and Situation Level of Consciousness: Alert Patient Behavior: Appropriate, Talkative, Cooperative and Good Eye Contact Mood Description: Apprehensive Affect Description: Flat Patient Cognition Impaired: No Ability to Follow Directions: Good Speech Pattern: Spontaneous Speech Memory Description: Episodic Impaired Data Data Completed and Pending Completed studies during hospitalization [Text1]: 11/21/22 11/21/22 11/21/22 15:17 15:20 15:20 WBC 4.8 RBC 5.19 Hgb 13.3 Hct 40.6 MCV 78.2 L MCH 25.6 L MCHC 32.8 RDW 13.7 Plt Count 275 MPV 9.1 L Immature Gran % (Auto) 0.0 Neut % (Auto) 62.6 Lymph % (Auto) 28.3 [place] % (Auto) 8.1 Eos % (Auto) 0.6 Baso % (Auto) 0.4 Lymph # (Auto) 1.4 [place] # (Auto) 0.4 Eos # (Auto) 0.0 Baso # (Auto) 0.0 Abs Immat Gran (auto) 0.00 Absolute Neuts (auto) 3.0 Absolute Nucleated RBC 0.000 Nucleated RBC % (auto) 0.0 Sodium 141 Potassium 3.6 Chloride 107 Carbon Dioxide 27 Anion Gap 11 L BUN 10 Creatinine 0.65 Estim Creat Clear Calc 81.3 Estimated GFR > 60 Random Glucose 82 Estimat Average Glucose Hemoglobin A1c % Calcium 9.9 Magnesium 2.1 Total Bilirubin 0.5 Direct Bilirubin 0.1 AST 19 ALT 15 Alkaline Phosphatase 66 Total Creatine Kinase 105 Total Protein 7.3 Albumin 4.4 Triglycerides Cholesterol LDL Cholesterol, Calc HDL Cholesterol Vitamin B12 Folate TSH Free T4 Urine Color Urine Appearance Urine pH Ur Specific [place] Urine Protein Urine Glucose (UA) Urine Ketones Urine Blood Urine Nitrite Ur Leukocyte Esterase Urine Test Salicylates < 5.0 L Urine Opiates Screen Urine Fentanyl Screen Acetaminophen < 17 Ur Barbiturates Screen Ur Phencyclidine Scrn Ur Amphetamines Screen U Benzodiazepines Scrn Urine Cocaine Screen U Marijuana (THC) Screen Ethyl Alcohol < 10 COVID-19 (JOHANNY) Negative COVID-19 Clin Com See Note 11/21/22 11/21/22 11/21/22 21:23 21:23 21:23 WBC RBC Hgb Hct MCV MCH MCHC RDW Plt Count MPV Immature Gran % (Auto) Neut % (Auto) Lymph % (Auto) [place] % (Auto) Eos % (Auto) Baso % (Auto) Lymph # (Auto) [place] # (Auto) Eos # (Auto) Baso # (Auto) Abs Immat Gran (auto) Absolute Neuts (auto) Absolute Nucleated RBC Nucleated RBC % (auto) Sodium Potassium Chloride Carbon Dioxide Anion Gap BUN Creatinine Estim Creat Clear Calc Estimated GFR Random Glucose Estimat Average Glucose Hemoglobin A1c % Calcium Magnesium Total Bilirubin Direct Bilirubin AST ALT Alkaline Phosphatase Total Creatine Kinase Total Protein Albumin Triglycerides Cholesterol LDL Cholesterol, Calc HDL Cholesterol Vitamin B12 Folate TSH Free T4 Urine Color Yellow Urine Appearance Clear Urine pH 6.0 Ur Specific [place] 1.015 Urine Protein Negative Urine Glucose (UA) Negative Urine Ketones Negative Urine Blood Negative Urine Nitrite Negative Ur Leukocyte Esterase Negative Urine Test NEGATIVE Salicylates Urine Opiates Screen Not Detected Urine Fentanyl Screen Not Detected Acetaminophen Ur Barbiturates Screen Not Detected Ur Phencyclidine Scrn Not Detected Ur Amphetamines Screen Not Detected U Benzodiazepines Scrn Not Detected Urine Cocaine Screen Not Detected U Marijuana (THC) Screen Not Detected Ethyl Alcohol COVID-19 (JOHANNY) COVID-19 Global Weather Com 11/24/22 11/24/22 11/24/22 07:10 07:10 07:10 WBC RBC Hgb Hct MCV MCH MCHC RDW Plt Count MPV Immature Gran % (Auto) Neut % (Auto) Lymph % (Auto) [place] % (Auto) Eos % (Auto) Baso % (Auto) Lymph # (Auto) [place] # (Auto) Eos # (Auto) Baso # (Auto) Abs Immat Gran (auto) Absolute Neuts (auto) Absolute Nucleated RBC Nucleated RBC % (auto) Sodium Potassium Chloride Carbon Dioxide Anion Gap BUN Creatinine Estim Creat Clear Calc Estimated GFR Random Glucose Estimat Average Glucose 100 Hemoglobin A1c % 5.1 Calcium Magnesium 2.0 Total Bilirubin Direct Bilirubin AST ALT Alkaline Phosphatase Total Creatine Kinase Total Protein Albumin Triglycerides 57 Cholesterol 221 LDL Cholesterol, Calc 146 HDL Cholesterol 64 Vitamin B12 500 Folate 17.1 TSH 1.13 Free T4 1.08 Urine Color Urine Appearance Urine pH Ur Specific [place] Urine Protein Urine Glucose (UA) Urine Ketones Urine Blood Urine Nitrite Ur Leukocyte Esterase Urine Test Salicylates Urine Opiates Screen Urine Fentanyl Screen Acetaminophen Ur Barbiturates Screen Ur Phencyclidine Scrn Ur Amphetamines Screen U Benzodiazepines Scrn Urine Cocaine Screen U Marijuana (THC) Screen Ethyl Alcohol COVID-19 (JOHANNY) COVID-19 Clin Com DS: Summary Hospital Course Hospital Course: Admission to adult psychiatry for exacerbation of symptoms of PTSD. Hx of seizure and spastic cerebral palsy. 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 She reported stopping all medications approximately 4 months ago and was willing to trial a new regime to assist with sx mgt. Cymbalta was discontinued. Lamictal and Olanzapine were initiated, tolerated and pt reports beginning symptom relief. She participated in the milieu fully. She signed a three day notice of intent as she has important follow up orthopedic appointments for possible surgeries to assist in ease of her mobility. She will call and or return as needed. Time spent discussing smoking cessation with patient: 3 to 10 minutes Status at Discharge Functional status at discharge: uses cane/walker (crutches) Overall status at discharge: patient is progressing back to baseline Time Spent with Patient Time attestation: Total time managing care of this patient today ____ minutes. Time spent: Greater than 30 minutes Discharge Plan Discharge Anticipated Discharge Date/Time: 11/27/22 12:00 Patient Disposition: Home, Self-Care Discharge Diagnosis: PTSD Referrals: [facility] [Other] - 11/28/22 (fax- [phone] The Visiting RN will be contacting you to arrange for coming out to see you on 11/28/22. ) [facility] w [facility] [Other] - 11/29/22 10:00 am (In person.) [facility]yche/Medication Provider w Dr. Singh [Other] - 12/09/22 2:00 pm (Telehealth) Casey Johnson III, MD [Primary Care Provider] - (Office will call you directly to schedule follow up) Discharge Medications: New olanzapine 5 mg Tablet 5 mg PO BEDTIME Qty: 15 1RF lamotrigine 25 mg Tablet 25 mg PO DAILY Qty: 30 0RF Discontinued duloxetine 30 mg capsule,delayed release(DR/EC) 30 mg PO DAILY Discharge Orders: Discharge Order (Routine); Ordered 11/27/22 Ordered By: Tressa Mroa Diet: Advance to usual diet Activity on Discharge: As tolerated Stand Alone Forms: Patient Portal Discharge page, Community Support Care Plan Goals: Mood and Behavioral Stabilization Health Concerns: Mood and Behavioral Stabilization Plan of Treatment: Attend scheduled out patient appointments Take medications as directed Call/Return as needed Assessment: Pt interviewed prior to discharge and found to be fully oriented and without SI/HI. Pt has insight and demonstrates good judgment in terms of wanting to pursue treatment. Pt is not in imminent risk of harm to self or others and has a safety plan that includes presenting to the closest ER or calling 911 if feeling unsafe. Pt has been observed closely by nursing and unit staff throughout admission Pt has not engaged in any behaviors that suggest dangerousness to self or others and has demonstrated appropriate behaviors and impulse control. Discharge Date/Time: 11/27/22 11:30
== END 2022-11-27 11:30 | disposition home or self-care (01) | DRG 755 ==
LOC: HO.ED 11-23 10:40 → HO.PM5 11-23 10:43
PROVIDERS: Clinical Nurse Specialist Psychiatric/Mental Health, Adult; Physician Assistant; Admitting Provider Psychiatry & Neurology Psychiatry; Emergency Provider Emergency Medicine Emergency Medical Services; PCP Internal Medicine; Visit Provider Psychiatry & Neurology Psychiatry
DX: F43.10 Post-traumatic stress disorder, unspecified (principal); G40.909 Epilepsy, unspecified, not intractable, without status epilepticus; G80.1 Spastic diplegic cerebral palsy; Z20.822 Contact with and (suspected) exposure to COVID-19; Z88.8 Allergy status to other drugs, medicaments and biological substances; Z79.899 Other long term (current) drug therapy
CPT/HCPCS: 36415; 80048; 80061; 80076; 80143; 80179; 80307; 81003; 81025; 82550; 82607; 82746; 83036; 83735; 84439; 84443; 85025; 87635; 99285; S9485

== ENCOUNTER 2023-02-06 00:09 | Emergency (ER) | payer OTHER, SELFPAY ==
[2023-02-06 00:15] VITALS: BP 118/72; PULSE 88; BMI 20.9
[2023-02-06 00:35] VITALS: BP 130/75; PULSE 108; RESP 20; TEMP 36.5; O2SAT 99
[2023-02-06] MEDS: ALPRAZolam 0.5 MG TABLET PO (01:29)
[2023-02-06] MEDS: Ondansetron ODT 4 MG TAB.RAPDIS TRANSLINGU (01:29)
--- NOTE | 2023-02-06 01:35 | ED.ANXIETY ---
HPI - Anxiety General Chief Complaint: Anxiety Stated Complaint: anxiety Time Seen by Provider: 02/06/23 01:08 Source: patient Mode of arrival: ambulatory Limitations: no limitations History of Present Illness HPI narrative: Patient will History of anxiety/panic disorder with history of PTSD been having poor sleep and increased anxiety for the last few days taking olanzapine more often but unable to sleep still feeling anxious denies any substance abuse no SI Related Data Previous Rx's Medication Instructions Recorded lamotrigine 25 mg tablet 25 mg PO DAILY #30 tabs 11/26/22 olanzapine 5 mg tablet 5 mg PO BEDTIME #15 tabs 11/26/22 alprazolam 0.5 mg tablet 0.5 mg PO BID PRN anxiety #14 tabs 02/06/23 Allergies Allergy/AdvReac Type Severity Reaction Status Date / Time sertraline [From Zoloft] Allergy Unknown Verified 11/22/22 11:19 Review of Systems Review of Systems: Yes all other systems are reviewed and are negative PMFSH Past Medical History Medical History PTSD (post-traumatic stress disorder) Social History Social History Household Members: None Housing: Apartment Housing Other:: Supervised/supported living Do you presently have visiting nurse or other home services: No Alcohol intake: never Patient Tobacco Use Status: Never used Tobacco Smoked in Last 30 Days: No e-Cigarette/Vaping Use: Never Used Second Hand Smoke Exposure: No Substance Use Type: Marijuana Advance Directives: No Advance Directives Information Provided: No Patient : No service: No Sexual orientation: Straight/Heterosexual Physical Exam Vital Signs: Vital Signs: Last Vital Signs Temp 98.7 F 02/06/23 01:59 Pulse 77 02/06/23 01:59 Resp 17 02/06/23 01:59 BP 121/66 02/06/23 01:59 Pulse Ox 98 02/06/23 01:59 O2 Del Method Room Air 02/06/23 01:59 BMI result Body Mass Index 20.9 Appearance: Alert. Oriented X3. No acute distress. Anxious Eyes: PERRLA, No Nystagmus ENT: Pharynx normal. Oral Mucosa moist Neck: Normal inspection. Neck supple. CVS: Normal heart rate and rhythm. Pulses normal. Respiratory: No respiratory distress. Equal air entry bilateral, no wheezing/rales/rhonchi Abdomen: Soft and nontender. Bowel sounds are present, no mass palpable, no CVA tenderness Skin: Skin warm and dry. Normal skin color. Normal skin turgor. Extremities: No lower extremity edema. No calf tenderness Neuro: Oriented X 3. No motor deficit. No sensory deficit.No cerebellar signs , cranial nerves II-XII intact Medications Administered Discontinued Medications Generic Name Dose Route Start Last Admin Trade Name Andrewq PRN Reason Stop Dose Admin Alprazolam 0.5 mg 02/06/23 01:17 02/06/23 01:29 Alprazolam 0.5 Mg Tablet PO 02/06/23 01:18 0.5 mg ONCE ONE Administration Bisacodyl 10 mg 02/06/23 01:35 02/06/23 01:39 Bisacodyl 5 Mg Tablet.Dr PO 02/06/23 01:36 10 mg ONCE ONE Administration Ondansetron HCl 4 mg 02/06/23 01:17 02/06/23 01:29 Ondansetron Odt 4 Mg Tab.Rapdis TRANSLINGU 02/06/23 01:18 4 mg ONCE ONE Administration Medical Decision Making Medical Decision Making MDM Narrative: Patient PTSD with anxiety will give Xanax for increased anxiety and discharged on alprazolam advised to follow-up with her therapist she has plan to Discharge Plan Discharge Clinical Impression: PTSD (post-traumatic stress disorder), Acute anxiety Patient Disposition: Home, Self-Care Instructions: Post Traumatic Stress Disorder (ED), Anxiety (ED) Additional Instructions: Continue medications as prescribed by therapist start taking alprazolam 0.5 mg 2 times a day as needed for anxiety Prescriptions: New alprazolam 0.5 mg tablet 0.5 mg PO BID PRN (Reason: anxiety) Qty: 14 0RF No Action olanzapine 5 mg Tablet 5 mg PO BEDTIME Qty: 15 1RF lamotrigine 25 mg Tablet 25 mg PO DAILY Qty: 30 0RF
[2023-02-06] MEDS: bisacodyL 5 MG TABLET.DR 10 MG PO (01:39)
[2023-02-06 01:59] VITALS: BP 121/66; PULSE 77; RESP 17; TEMP 37.1; O2SAT 98
--- NOTE | 2023-02-06 04:26 | PC.NURSE ---
Patient reports cramp like mid abdominal pain 01/13. + BSx4. Dr. Thomas notified, verbal order received for Tylenol 650 mg PO.
[2023-02-06] MEDS: Acetaminophen 325 MG TABLET 650 MG PO (04:33)
--- NOTE | 2023-02-06 08:24 | MHC.EDTECH ---
Emptied commode, replaced liner then assisted patient on to commode. Assisted patient with personal hygiene the assisted getting back into bed. Taylor Wren
== END 2023-02-06 08:40 | disposition home or self-care (01) ==
PROVIDERS: Emergency Provider Internal Medicine
DX: F41.1 Generalized anxiety disorder (principal); F43.0 Acute stress reaction; F43.10 Post-traumatic stress disorder, unspecified
CPT/HCPCS: 99283; 99284

== ENCOUNTER 2023-09-10 14:53 | Emergency (ER) | payer OTHER, SELFPAY ==
[2023-09-10 15:09] VITALS: BP 137/7; PULSE 85; RESP 18; TEMP 37.1; O2SAT 100; BMI 20.5
--- NOTE | 2023-09-10 15:16 | ED_ITS ---
HPI - Recheck/Abnormal Lab/Rx General Chief Complaint: Recheck/Abnormal Lab/Rx Stated Complaint: Abnormal labs Source: patient Mode of arrival: ambulatory Limitations: no limitations History of Present Illness HPI narrative: 23 year old female with a past medical history of PTSD and heavy menses presents to the emergency department for concerns of worsening anemia and increased fatigue for the past couple days. She reports she had her blood work checked yesterday to primary care office and her hemoglobin was 11.5. She states she contacted her primary care provider earlier today recommended that she present to the emergency department further evaluation. She denies any shortness of breath, chest pain, abdominal pain, nausea, vomiting, diarrhea, constipation, melena, hematochezia, changing in gait Pertinent positives and negatives discussed in HPI Related Data Previous Rx's Medication Instructions Recorded lamotrigine 25 mg tablet 25 mg PO DAILY #30 tabs 11/26/22 olanzapine 5 mg tablet 5 mg PO BEDTIME #15 tabs 11/26/22 alprazolam 0.5 mg tablet 0.5 mg PO BID PRN anxiety #14 tabs 02/06/23 Allergies Allergy/AdvReac Type Severity Reaction Status Date / Time sertraline [From Zoloft] Allergy Unknown Verified 09/10/23 15:14 Review of Systems 2 Review of Systems: Yes all other systems are reviewed and are negative PMFSH Past Medical History Medical History PTSD (post-traumatic stress disorder) Social History Social History Household Members: None Housing: Apartment Housing Other:: Supervised/supported living Do you presently have visiting nurse or other home services: No Alcohol intake: never Patient Tobacco Use Status: Never used Tobacco e-Cigarette/Vaping Use: Never Used Second Hand Smoke Exposure: No Substance Use Type: Marijuana service: No Sexual orientation: Straight/Heterosexual Physical Exam 2 Vital Signs: Vital Signs: Last Vital Signs Temp 98.6 F 09/10/23 16:35 Pulse 82 09/10/23 16:35 Resp 20 09/10/23 16:35 BP 110/69 09/10/23 16:35 Pulse Ox 99 09/10/23 16:35 O2 Del Method Room Air 09/10/23 16:35 BMI result Body Mass Index 20.5 Nursing notes and vital signs reviewed. GENERAL APPEARANCE: A&0 x 4, generally well appearing, no acute distress HENMT: Normal to inspection, atraumatic, face symmetrical. Normal external ears, nose, and oropharynx clear. EYE: PERRLA, EOM intact, structures appear normal NECK: Supple without stiffness or restricted ROM. HEART: Normal rate and regular rhythm, normal S1/S2, no M/R/G LUNGS: LS CTA, moving air well. Able to speak in complete sentences. No crackles, wheezes, or rhonchi auscultated BACK: No CVAT, no obvious deformity EXTREMITIES: Moving all extremities without difficulty. Normal capillary refill. Walks with crutches at baseline NEUROLOGICAL: Alert and oriented, moving all 4 extremities with equal strength. CN not formally tested but appearing grossly intact. Observed to ambulate with normal gait. Cognition normal SKIN: Warm and dry without any lesions, rash, or visible sores Medical Decision Making Medical Decision Making MDM Narrative: Old records reviewed for previous imaging, lab studies, ECGs, and notes. Patient was assessed the emergency department with no acute distress or toxicity noted. Blood work segment with hemoglobin 11.5 with no other signs of acute abnormalities. Patient recommended to increase her dietary iron intake and follow with her human resources assistant manager regarding her heavy menses. Patient is safe for discharge at this time with plan for [id number] Tylenol and/or NSAID such as ibuprofen or naproxen for fever/discomfort with dosing as per packaging. HPI, PE, diagnostics, and plan discussed with patient and family with no unanswered questions at this time. Strict return precautions given to return to the emergency department with new, worsening, or concerning emergent symptoms. Recommended to follow-up with there primary care provider in 24-48 hours for further treatment and management. Differential Diagnosis Differential Diagnoses: The differential diagnosis associated with the presentation includes But not limited to anemia, hemorrhage, infection, malignancy Lab Data 09/10/23 16:02 09/10/23 16:02 Labs: Lab Results 09/10/23 Range/Units 16:02 WBC 4.7 L (4.8-10.8) X10*3/uL RBC 5.02 (4.20-5.50) X10*6/uL Hgb 11.5 L (12.0-16.0) g/dl Hct 37.0 (37.0-47.0) % MCV 73.7 L (80.0-98.0) fL MCH 22.9 L (27.0-33.0) pg MCHC 31.1 (31.0-35.0) g/dl RDW 17.0 H (11.0-16.0) % Plt Count 332 (160-400) X10*3/uL MPV 9.1 L (9.4-12.3) fL Immature Gran % (Auto) 0.2 (0.0-0.4) % Neut % (Auto) 40.1 L (45-73) % Lymph % (Auto) 51.0 H (20-40) % [place] % (Auto) 7.2 (2-11) % Eos % (Auto) 1.1 (0-4) % Baso % (Auto) 0.4 (0-2) % Lymph # (Auto) 2.4 (1.2-4.9) X10*3/uL [place] # (Auto) 0.3 (0.1-1.2) X10*3/uL Eos # (Auto) 0.1 (0.0-0.4) X10*3/uL Baso # (Auto) 0.0 (0.0-0.2) X10*3/uL Abs Immat Gran (auto) 0.01 (0.00-0.03) X10*3/uL Absolute Neuts (auto) 1.9 L (2.0-8.3) x10*3/uL Absolute Nucleated RBC 0.000 (0.0-0.012) X10*3/uL Nucleated RBC % (auto) 0.0 (0.0-0.2) /100WBC Sodium 140 (135-145) mmol/L Potassium 3.7 (3.3-5.1) mmol/L Chloride 106 (96-108) mmol/L Carbon Dioxide 26 (22-29) mmol/L Anion Gap 12 (12-20) BUN 13 (9-16) mg/dL Creatinine 0.59 (0.5-1.4) mg/dL Estim Creat Clear Calc 78.9 Estimated GFR > 60 Random Glucose 72 (60-115) mg/dL Calcium 9.4 (8.4-10.2) mg/dL Discharge Plan Discharge Clinical Impression: Anemia Patient Disposition: Home, Self-Care Instructions: Anemia (ED) Prescriptions: No Action olanzapine 5 mg Tablet 5 mg PO BEDTIME Qty: 15 1RF lamotrigine 25 mg Tablet 25 mg PO DAILY Qty: 30 0RF alprazolam 0.5 mg tablet 0.5 mg PO BID PRN (Reason: anxiety) Qty: 14 0RF Referrals: Physician,Unknown J [Physician] - Stand Alone Forms: Work/School Release Print Language: Italian
[2023-09-10 16:06] LABS: MANUAL DIFF FLAG NO
[2023-09-10 16:11] LABS: Basophils Percent Auto 0.4 % (0-2); Eosinophils Absolute Auto 0.1 X10*3/uL (0.0-0.4); Eosinophils Percent Auto 1.1 % (0-4); Hemoglobin 11.5 g/dl (12.0-16.0); Imm Gran Abs Auto 0.01 X10*3/uL (0.00-0.03); Imm Gran Pct Auto 0.2 % (0.0-0.4); Lymphocytes Absolute Auto 2.4 X10*3/uL (1.2-4.9); Mean Corpuscular HGB Conc 31.1 g/dl (31.0-35.0); Mean Corpuscular Hemoglobin 22.9 pg (27.0-33.0); Mean Corpuscular Volume 73.7 fL (80.0-98.0); Mean Platelet Volume 9.1 fL (9.4-12.3); Monocytes Absolute Auto 0.3 X10*3/uL (0.1-1.2); Monocytes Percent Auto 7.2 % (2-11); Neutrophils Absolute Auto 1.9 x10*3/uL (2.0-8.3); Neutrophils Percent Auto 40.1 % (45-73); Platelet Count 332 X10*3/uL (160-400); Red Blood Count 5.02 X10*6/uL (4.20-5.50); White Blood Count 4.7 X10*3/uL (4.8-10.8)
[2023-09-10 16:19] LABS: Anion Gap 12 (12-20); Blood Urea Nitrogen 13 mg/dL (9-16); Calcium 9.4 mg/dL (8.4-10.2); Carbon Dioxide 26 mmol/L (22-29); Chloride 106 mmol/L (96-108); Creatinine Clr Calc Pharmacy 78.9; Estimated Glomerular Filt Rate > 60; Glucose Random 72 mg/dL (60-115); Potassium 3.7 mmol/L (3.3-5.1); Sodium 140 mmol/L (135-145)
[2023-09-10 16:35] VITALS: BP 110/69; PULSE 82; RESP 20; TEMP 37; O2SAT 99
== END 2023-09-10 16:45 | disposition home or self-care (01) ==
PROVIDERS: Nurse Practitioner Family; Emergency Provider Emergency Medicine; PCP Internal Medicine
DX: D64.9 Anemia, unspecified (principal); N92.0 Excessive and frequent menstruation with regular cycle
CPT/HCPCS: 36415; 80048; 85025; 99282; 99283

== ENCOUNTER 2023-12-16 14:21 | Outpatient (AMB) | payer OTHER, SELFPAY ==
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
[2023-12-16 14:36] VITALS: BP 122/80; PULSE 70; O2SAT 100; BMI 20.7
== END 2023-12-16 15:51 | disposition home or self-care (01) ==
PROVIDERS: Visit Provider Nurse Practitioner Family
DX: R56.9 Unspecified convulsions (principal); R41.3 Other amnesia; R25.2 Cramp and spasm; G80.1 Spastic diplegic cerebral palsy
CPT/HCPCS: 99204

== ENCOUNTER → 2023-12-16 14:21 | Outpatient (BNVA) | payer OTHER, SELFPAY | PROVIDERS: Visit Provider Nurse Practitioner Family | DX: R56.9 Unspecified convulsions (principal); R41.3 Other amnesia; R25.2 Cramp and spasm; G80.1 Spastic diplegic cerebral palsy | CPT/HCPCS: 99202 ==

== ENCOUNTER 2024-07-14 14:10 | Outpatient (AMB) | payer OTHER, SELFPAY ==
--- OUTSIDE RECORDS SUMMARY | 2024-07-14 14:12 | XMS_ITS ---
Author Name [facility] ([place], [place]) Organization Unknown History of Medication Use Medication Directions Dispensed Refills Start Date End Date Stat hydrOXYzine (ATARAX) 25 MG tablet TAKE ONE (1) TABLET BY MOUTH TWICE A DAY, NEEDED FOR ANXIETY 03/12/2022 active FREESTYLE LANCETS 28 gauge lancets TEST SUGARS DAILY NEEDED FOR HYPOGLYCEMIA 03/12/2022 active Problems Problem Status Onset Date Problem Type Date of Resolution Source Spastic diplegia active EncounterDiagnosisAct [facility] Leg length discrepancy active EncounterDiagnosisAct [facility]
[2024-07-14 14:39] VITALS: PULSE 82; O2SAT 97; BMI 21.0
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
== END 2024-07-14 15:37 | disposition home or self-care (01) ==
PROVIDERS: Visit Provider Nurse Practitioner Family
DX: R56.9 Unspecified convulsions (principal); R41.3 Other amnesia; R25.2 Cramp and spasm; G80.1 Spastic diplegic cerebral palsy
CPT/HCPCS: 99214

== ENCOUNTER → 2024-07-14 14:10 | Outpatient (BNVA) | payer OTHER, SELFPAY | PROVIDERS: Visit Provider Nurse Practitioner Family | DX: G80.1 Spastic diplegic cerebral palsy (principal); R56.9 Unspecified convulsions; R41.3 Other amnesia; R25.2 Cramp and spasm | CPT/HCPCS: 99212 ==

== ENCOUNTER 2024-10-05 01:18 | Emergency (ER) | payer OTHER, SELFPAY ==
[2024-10-05 01:27] VITALS: BP 110/77; PULSE 95; RESP 16; TEMP 36.4; BMI 21.7
--- NOTE | 2024-10-05 01:42 | ECG_ITS ---
Test Reason : ABD PAIN Blood Pressure : */* mmHG Vent. Rate : 100 BPM Atrial Rate : 100 BPM P-R Int : 128 ms QRS Dur : 82 ms QT Int : 344 ms P-R-T Axes : 68 69 32 degrees QTcB Int : 443 ms Normal sinus rhythm Normal ECG When compared with ECG of 06-Jul-2022 23:42, No significant change was found Referred By: Rodrigo Wells Electronically Signed By: DARLIN BUCK
--- NOTE | 2024-10-05 01:48 | ED.ABDPAIN ---
HPI - Abdominal Pain General Chief Complaint: Abdominal Pain Stated Complaint: ab pain, nausea, migraine x2 days, walker baseline Time Seen by Provider: 10/05/24 01:42 Source: patient Mode of arrival: EMS Limitations: no limitations History of Present Illness ED Provider: HPI narrative: patient's history of PTSD with increased stress anxiety and depression with history of migraine nausea comes here with multiple symptoms increased stress having dizziness nausea no vomiting asking for medicine to relax patient has had left femur surgery 09/02 no leg swelling or pain Related Data Home Medications ?Medication ?Instructions ?Recorded ?Confirmed docusate sodium 100 mg capsule 100 mg PO BID PRN 07/14/24 07/14/24 (Colace) ferrous sulfate 325 mg (65 mg 325 mg PO DAILY 07/14/24 07/14/24 iron) tablet folic acid 1 mg tablet 1 mg PO DAILY 07/14/24 07/14/24 Previous Rx's ?Medication ?Instructions ?Recorded gabapentin 100 mg capsule 100 - 300 mg (1 - 3 x 100 mg) PO 12/16/23 BEDTIME 30 days #90 caps oxcarbazepine 150 mg tablet 150 mg PO .COMPLEX 30 days #60 tabs 01/07/24 (Trileptal) clonazepam 0.5 mg disintegrating 0.5 mg PO DAILY PRN sexual 04/19/24 tablet activity 30 days #5 tabs Allergies Allergy/AdvReac Type Severity Reaction Status Date / Time sertraline [From Zoloft] Allergy Unknown Verified 10/05/24 01:29 Review of Systems Review of Systems Yes all other systems are reviewed and are negative PMFSH Past Medical History Medical History Recent surgical procedure on lower extremity PTSD (post-traumatic stress disorder) Social History Social History Household Members: None Housing: Apartment Housing Other:: Supervised/supported living Do you presently have visiting nurse or other home services: No Alcohol intake: never Patient Tobacco Use Status: Never used Tobacco Smoked in Last 30 Days: No e-Cigarette/Vaping Use: Never Used Second Hand Smoke Exposure: No Use of substances other than those prescribed or required for medical reasons: No Substance Use Type: Marijuana Advance Directives: No Advance Directives Information Provided: Yes Do you have a plan to hurt others: No Plan Patient : No service: No Sexual orientation: Straight/Heterosexual Physical Exam ED Vital Signs: Vital Signs - 24 hr 10/05/24 01:27 10/05/24 02:35 10/05/24 05:50 Temperature 97.6 F 97.8 F 97.6 F Pulse Rate 95 99 85 Respiratory Rate 16 18 16 Blood Pressure 110/77 114/65 111/61 Pulse Oximetry 97 98 Oxygen Delivery Method Room Air Room Air BMI result Body Mass Index 21.7 Appearance: Alert. Oriented X3. No acute distress. anxious Eyes: no pallor or icterus ENT: Pharynx normal. Oral Mucosa moist Neck: Normal inspection. Neck supple. CVS: Normal heart rate and rhythm. Pulses normal. Respiratory: No respiratory distress. Equal air entry bilateral, no wheezing/rales/rhonchi Abdomen: Soft and nontender. Bowel sounds are present, no mass palpable, no CVA tenderness Skin: Skin warm and dry. Normal skin color. Normal skin turgor. Extremities: No lower extremity edema. No calf tenderness Neuro: Oriented X 3. No motor deficit. No sensory deficit.No cerebellar signs , cranial nerves II-XII intact Medical Decision Making Medical Decision Making [facility] Narrative: Patient with anxiety after lorazepam patient has been sleeping feeling much better will discharge patient home Lab Data [facility] Lab Attestation statement: I reviewed the patient's lab results. 10/05/24 01:53 10/05/24 01:53 Labs: Lab Results 10/05/24 Range/Units 01:53 WBC 9.4 (4.8-10.8) X10*3/uL RBC 4.53 (4.20-5.50) X10*6/uL Hgb 12.9 (12.0-16.0) g/dl Hct 37.6 (37.0-47.0) % MCV 83.0 (80.0-98.0) fL MCH 28.5 (27.0-33.0) pg MCHC 34.3 (31.0-35.0) g/dl RDW 13.1 (11.0-16.0) % Plt Count 290 (160-400) X10*3/uL MPV 8.7 L (9.4-12.3) fL Immature Gran % (Auto) 0.3 (0.0-0.4) % Neut % (Auto) 77.0 H (45-73) % Lymph % (Auto) 17.1 L (20-40) % Banner % (Auto) 5.1 (2-11) % Eos % (Auto) 0.3 (0-4) % Baso % (Auto) 0.2 (0-2) % Lymph # (Auto) 1.6 (1.2-4.9) X10*3/uL Banner # (Auto) 0.5 (0.1-1.2) X10*3/uL Eos # (Auto) 0.0 (0.0-0.4) X10*3/uL Baso # (Auto) 0.0 (0.0-0.2) X10*3/uL Abs Immat Gran (auto) 0.03 (0.00-0.03) X10*3/uL Absolute Neuts (auto) 7.2 (2.0-8.3) x10*3/uL Absolute Nucleated RBC 0.000 (0.0-0.012) X10*3/uL Nucleated RBC % (auto) 0.0 (0.0-0.2) /100WBC Sodium 142 (135-145) mmol/L Potassium 3.8 (3.3-5.1) mmol/L Chloride 107 (96-108) mmol/L Carbon Dioxide 25 (22-29) mmol/L Anion Gap 14 (12-20) BUN 15 (9-16) mg/dL Creatinine 0.59 (0.5-1.4) mg/dL Estim Creat Clear Calc 85.9 Estimated GFR > 60 Random Glucose 106 (60-115) mg/dL Calcium 9.5 (8.4-10.2) mg/dL Total Bilirubin 0.2 (0.0-1.0) mg/dL AST 37 H (5-31) U/L ALT 36 H (0-31) U/L Alkaline Phosphatase 91 (39-117) U/L Troponin I High Sens < 2.7 (<3.5-17.0) ng/L Total Protein 7.4 (6.5-8.0) g/dL Albumin 4.5 (3.5-5.0) g/dL Independent Interpretation I performed an independent interpretation of an: EKG Interpretation: Normal sinus rhythm heart rate 100 beats per minute normal interval normal axis no acute ST-T changes no acute ischemia Medications Administered Discontinued Medications Generic Name Dose Route Start Last Admin Trade Name Antonio PRN Reason Stop Dose Admin Lorazepam 1 mg 10/05/24 01:53 10/05/24 02:01 Lorazepam 2 Mg/Ml Vial IVPUSH 10/05/24 01:54 1 mg ONCE ONE Administration Ondansetron HCl 4 mg 10/05/24 01:53 10/05/24 02:02 Ondansetron Hcl 4 Mg/2 Ml Vial IVPUSH 10/05/24 01:54 4 mg ONCE ONE Administration Discharge Plan Discharge Clinical Impression: Anxiety Patient Disposition: Home, Self-Care Instructions: Generalized Anxiety Disorder (ED) Additional Instructions: Take your medication as prescribed by your psychiatrist and follow up with your therapist Prescriptions: No Action oxcarbazepine [Trileptal] 150 mg tablet 150 mg PO .COMPLEX 30 Days Qty: 60 1RF Rx Instructions: 150 mg orally qhs x's 2 weeks, then BID; clonazepam 0.5 mg tablet,disintegrating 0.5 mg PO DAILY PRN (Reason: sexual activity) 30 Days Qty: 5 3RF gabapentin 100 mg capsule 100 - 300 mg PO BEDTIME 30 Days Qty: 90 3RF docusate sodium [Colace] 100 mg capsule 100 mg PO BID PRN folic acid 1 mg tablet 1 mg PO DAILY ferrous sulfate 325 mg (65 mg iron) tablet 325 mg PO DAILY Interventions: ED Discharge Assessment Last Done: 10/05/24 05:50 Discharge Date/Time: 10/05/24 06:46 Print Language: Canadian
[2024-10-05 01:57] LABS: MANUAL DIFF FLAG NO
[2024-10-05 01:58] LABS: Basophils Percent Auto 0.2 % (0-2); Eosinophils Percent Auto 0.3 % (0-4); Hematocrit 37.6 % (37.0-47.0); Hemoglobin 12.9 g/dl (12.0-16.0); Imm Gran Abs Auto 0.03 X10*3/uL (0.00-0.03); Imm Gran Pct Auto 0.3 % (0.0-0.4); Lymphocytes Absolute Auto 1.6 X10*3/uL (1.2-4.9); Lymphocytes Percent Auto 17.1 % (20-40); Mean Corpuscular HGB Conc 34.3 g/dl (31.0-35.0); Mean Corpuscular Hemoglobin 28.5 pg (27.0-33.0); Mean Platelet Volume 8.7 fL (9.4-12.3); Monocytes Absolute Auto 0.5 X10*3/uL (0.1-1.2); Monocytes Percent Auto 5.1 % (2-11); Neutrophils Absolute Auto 7.2 x10*3/uL (2.0-8.3); Platelet Count 290 X10*3/uL (160-400); Red Blood Count 4.53 X10*6/uL (4.20-5.50); Red Cell Distribution Width 13.1 % (11.0-16.0); White Blood Count 9.4 X10*3/uL (4.8-10.8)
[2024-10-05] MEDS: LORazepam 2 MG/ML VIAL 1 MG IVPUSH (02:01)
[2024-10-05] MEDS: ondansetron HCL 4 MG/2 ML VIAL IVPUSH (02:02)
[2024-10-05 02:26] LABS: Alanine Aminotransferase 36 U/L (0-31); Albumin Level 4.5 g/dL (3.5-5.0); Anion Gap 14 (12-20); Aspartate Amino Transferase 37 U/L (5-31); Bilirubin Total 0.2 mg/dL (0.0-1.0); Blood Urea Nitrogen 15 mg/dL (9-16); Calcium 9.5 mg/dL (8.4-10.2); Carbon Dioxide 25 mmol/L (22-29); Chloride 107 mmol/L (96-108); Creatinine Clr Calc Pharmacy 85.9; Estimated Glomerular Filt Rate > 60; Glucose Random 106 mg/dL (60-115); Potassium 3.8 mmol/L (3.3-5.1); Sodium 142 mmol/L (135-145); Total Protein 7.4 g/dL (6.5-8.0); Troponin-I High Sensitivity < 2.7 ng/L (<3.5-17.0)
[2024-10-05 02:35] VITALS: BP 114/65; PULSE 99; RESP 18; TEMP 36.6; O2SAT 97
[2024-10-05 02:44] LABS: Alkaline Phosphatase 91 U/L (39-117)
[2024-10-05 05:50] VITALS: BP 111/61; PULSE 85; RESP 16; TEMP 36.4; O2SAT 98
== END 2024-10-05 06:46 | disposition home or self-care (01) ==
PROVIDERS: Emergency Provider Internal Medicine; PCP Internal Medicine
DX: F41.9 Anxiety disorder, unspecified (principal); Z79.899 Other long term (current) drug therapy
CPT/HCPCS: 36415; 80053; 84484; 85025; 93005; 96374; 96375; 99284; 99285; J2060; J2405

== ENCOUNTER → 2024-10-05 01:42 | Outpatient (BNV) | payer OTHER, SELFPAY | PROVIDERS: Emergency Provider Internal Medicine; PCP Internal Medicine; Visit Provider Internal Medicine | DX: R10.9 Unspecified abdominal pain (principal) | CPT/HCPCS: 93010 ==

== ENCOUNTER 2025-01-06 10:31 | Emergency (ER) | payer OTHER, SELFPAY ==
--- NOTE | ~2025-01-06 | XR_ITS ---
EXAMINATION: XR KNEE, LEFT CLINICAL INFORMATION: pain COMPARISON: None available. TECHNIQUE: AP oblique and lateral views of the left knee. FINDINGS: There is an intramedullary rober through the diaphysis of the femur no fully included in the exam and secured with 2 metallic screws in the distal diaphysis. No gross loosening. Joint space narrowing involving mostly the medial compartment. No acute cortical disruption or malalignment. No lytic or blastic lesions. No suprapatellar bursa joint effusion. No subcutaneous emphysema. XR/XR knee LT 3V IMPRESSION: Medial compartment osteoarthrosis. No acute fracture or dislocation. Electronically signed by: Daniel Spears MD 01/06/2025 12:48 PM EDT
--- NOTE | ~2025-01-06 | US_ITS ---
EXAMINATION: US TRIPLEX LOWER EXTREMITY, LEFT CLINICAL INFORMATION: Pain, left lower extremity. COMPARISON: None available. TECHNIQUE: Color-flow triplex imaging with spectral analysis and compression Doppler were performed on the left lower extremity. FINDINGS: Respiratory variation, normal compression and augmented flow are demonstrated throughout the interrogated left common femoral vein, superficial femoral vein, profunda femoral vein, popliteal vein and midcalf peroneal and posterior tibial venous segments . There is no Valles's cyst. US/US venous duplex LE LT IMPRESSION: No acute deep venous thrombosis interrogated veins, left lower extremity. Negative for DVT. Electronically signed by: Daniel Spears MD 01/06/2025 03:18 PM EDT
--- NOTE | ~2025-01-06 | XR_ITS ---
EXAMINATION: XR HIP 1 VIEW LEFT WITH PELVIS HISTORY: s/p surgery ? dislocation COMPARISON: There are no prior studies available for comparison. FINDINGS: A single AP view of the pelvis and two views of the left hip are submitted. Osseous mineralization is normal. The patient is status post internal fixation of both hips with compression screws and intramedullary rods. There is evidence of prior internal fixation hardware of the proximal left femur with multiple screw holes. There is an osteotomy in the subtrochanteric region of the left hip. There is no acute fracture or dislocation The joint space is maintained. The soft tissues are unremarkable. XR/XR hip LT w PEL1V IMPRESSION: Internal fixation of both hips. There is no dislocation. Electronically signed by: Miguel Crowe MD 01/06/2025 12:49 PM EDT
[2025-01-06 10:35] VITALS: BP 132/80; PULSE 88; O2SAT 99
[2025-01-06 10:39] VITALS: BP 116/58; PULSE 92; RESP 16; TEMP 36.7; O2SAT 100; BMI 22.0
--- NOTE | 2025-01-06 12:09 | ED.GENADULT ---
HPI - General Adult General Chief complaint: Extremity Injury, Lower Stated complaint: HIP PAIN,H/O SURGERY/AUGUST,UNABLE TO AMB Time Seen by Provider: 01/06/25 10:41 History of Present Illness HPI narrative: Patient is a 24-year-old female had a history of cerebral palsy. Patient had hip surgery done at [facility] in August. Been seeing physical therapy. Came in today complaining of increasing pain to the hip and to the knee. There is no new injury. There is no fall. Patient is from home. Does not think she is . No fever no chills. No chest pain. No shortness of breath no leg swelling. No diaphoresis. Related Data Home Medications ?Medication ?Instructions ?Recorded ?Confirmed docusate sodium 100 mg capsule 100 mg PO BID PRN 07/14/24 07/14/24 (Colace) ferrous sulfate 325 mg (65 mg 325 mg PO DAILY 07/14/24 07/14/24 iron) tablet folic acid 1 mg tablet 1 mg PO DAILY 07/14/24 07/14/24 Previous Rx's ?Medication ?Instructions ?Recorded gabapentin 100 mg capsule 100 - 300 mg (1 - 3 x 100 mg) PO 12/16/23 BEDTIME 30 days #90 caps oxcarbazepine 150 mg tablet 150 mg PO .COMPLEX 30 days #60 tabs 01/07/24 (Trileptal) clonazepam 0.5 mg disintegrating 0.5 mg PO DAILY PRN sexual 04/19/24 tablet activity 30 days #5 tabs sumatriptan succinate 100 mg tablet 50 - 100 mg (0.5 - 1 x 100 mg) PO 10/10/24 .COMPLEX PRN migraine headache 30 days #12 tabs Allergies Allergy/AdvReac Type Severity Reaction Status Date / Time sertraline (From Zoloft) Allergy Unknown Verified 01/06/25 10:42 Review of Systems Review of Systems: Positive pain to the left hip Yes all other systems are reviewed and are negative PMFSH Past Medical History Attestation statement: The following information was validated with the patient. Medical History Recent surgical procedure on lower extremity PTSD (post-traumatic stress disorder) Social History Social History Household Members: None Housing: Apartment Housing Other:: Supervised/supported living Do you presently have visiting nurse or other home services: No Alcohol intake: never Patient Tobacco Use Status: Never used Tobacco e-Cigarette/Vaping Use: Never Used Second Hand Smoke Exposure: No Substance Use Type: Marijuana Advance Directives: No Advance Directives Information Provided: Yes Do you have a plan to hurt others: No Plan service: No Sexual orientation: Straight/Heterosexual Physical Exam ED Vital Signs: Vital Signs - 24 hr 01/06/25 10:39 01/06/25 12:50 Temperature 98.1 F 97.9 F Pulse Rate 92 68 Respiratory Rate 16 18 Blood Pressure 116/58 L 106/57 L Pulse Oximetry 100 98 Oxygen Delivery Method Room Air Room Air BMI result Body Mass Index 22.0 Appearance: Alert. Oriented X3. No acute distress. Eyes: Pupils equal, round and reactive to light. ENT: Pharynx normal. Neck: Normal inspection. Neck supple. No lymph nodes noted. No crepitus CVS: Normal heart rate and rhythm. Pulses normal. Normal S1 and S2 Respiratory: No respiratory distress. Breath sounds normal. No Wheezing. No rales Abdomen: Soft and nontender. No rigidity. No distention. good BS x4 Skin: Skin warm and dry. Normal skin color. Normal skin turgor. Extremities: No lower extremity edema. Neurovascular intact to all extremities. No Lacerations. No Rash Neuro: Oriented X 3. No motor deficit. No sensory deficit. Moving all extermities. No slurred speech Medications Administered Discontinued Medications Generic Name Dose Route Start Last Admin Trade Name Freq PRN Reason Stop Dose Admin Hydromorphone HCl 0.5 mg 01/06/25 11:49 01/06/25 12:56 Hydromorphone Hcl 0.5 Mg/0.5 Ml Syringe IVPUSH 01/06/25 11:50 Not Given ONCE ONE Protocol Sodium Chloride 1,000 mls @ 999 mls/hr 01/06/25 12:00 01/06/25 14:12 Ns IV 01/06/25 13:00 Infused .Q1H1M MADHURI Infusion Ondansetron HCl 4 mg 01/06/25 11:49 01/06/25 12:44 Ondansetron Hcl 4 Mg/2 Ml Vial IVPUSH 01/06/25 11:50 4 mg ONCE ONE Administration Medical Decision Making Medical Decision Making MDM Narrative: My interpretation patient's x-ray was grossly negative for any fracture. No malalignment no dislocation. Doppler ultrasound lower extremity was done radiology's interpretation is grossly negative there is no evidence for DVT. There is no fever no chills. Patient's white count is normal. Normal differential. No signs of infection. Patient is kidney function was normal test is negative. In no distress. Will discharge patient home. Differential Diagnosis Differential Diagnoses: The differential diagnosis associated with the presentation includes Dislocation, fracture, DVT Admission/Observation Consideration of admission/observation: Escalation of care including admission/observation considered Lab Data 01/06/25 12:23 01/06/25 12:23 Labs: Lab Results 01/06/25 Range/Units 12:23 WBC 6.4 (4.8-10.8) X10*3/uL RBC 5.11 (4.20-5.50) X10*6/uL Hgb 13.8 (12.0-16.0) g/dl Hct 41.2 (37.0-47.0) % MCV 80.6 (80.0-98.0) fL MCH 27.0 (27.0-33.0) pg MCHC 33.5 (31.0-35.0) g/dl RDW 13.7 (11.0-16.0) % Plt Count 234 (160-400) X10*3/uL MPV 9.2 L (9.4-12.3) fL Immature Gran % (Auto) 0.2 (0.0-0.4) % Neut % (Auto) 53.8 (45-73) % Lymph % (Auto) 37.6 (20-40) % Cecil % (Auto) 7.3 (2-11) % Eos % (Auto) 0.8 (0-4) % Baso % (Auto) 0.3 (0-2) % Lymph # (Auto) 2.4 (1.2-4.9) X10*3/uL Cecil # (Auto) 0.5 (0.1-1.2) X10*3/uL Eos # (Auto) 0.1 (0.0-0.4) X10*3/uL Baso # (Auto) 0.0 (0.0-0.2) X10*3/uL Abs Immat Gran (auto) 0.01 (0.00-0.03) X10*3/uL Absolute Neuts (auto) 3.5 (2.0-8.3) x10*3/uL Absolute Nucleated RBC 0.000 (0.0-0.012) X10*3/uL Nucleated RBC % (auto) 0.0 (0.0-0.2) /100WBC Sodium 138 (135-145) mmol/L Potassium 3.5 (3.3-5.1) mmol/L Chloride 107 (96-108) mmol/L Carbon Dioxide 23 (22-29) mmol/L Anion Gap 12 (12-20) BUN 8 L (9-16) mg/dL Creatinine 0.47 L (0.5-1.4) mg/dL Estim Creat Clear Calc 108.5 Estimated GFR > 60 Random Glucose 77 (60-115) mg/dL Calcium 8.8 D (8.4-10.2) mg/dL Beta HCG, Quant < 2 mIU/mL Independent Interpretation I performed an independent interpretation of an: Plain X-Ray (X-ray of the hip x-ray the knee were grossly negative) Radiology Impression Discussion of test interpretation with radiology: I have reviewed the radiologist's reading. External Record Review External record reviewed: Office record Outpatient neurology record reviewed Prescription Management History of cerebral palsy Discharge Plan Discharge Clinical Impression: Acute hip pain Patient Disposition: Home, Self-Care Prescriptions: No Action oxcarbazepine [Trileptal] 150 mg tablet 150 mg PO .COMPLEX 30 Days Qty: 60 1RF Rx Instructions: 150 mg orally qhs x's 2 weeks, then BID; clonazepam 0.5 mg tablet,disintegrating 0.5 mg PO DAILY PRN (Reason: sexual activity) 30 Days Qty: 5 3RF sumatriptan succinate 100 mg tablet 50 - 100 mg PO .COMPLEX PRN (Reason: migraine headache) 30 Days Qty: 12 6RF Rx Instructions: 50 - 100 mg orally at onset of headache, may repeat in 2 hrs PRN; max 2 tabs per day or 4 tabs/week (may take with Ibuprofen) gabapentin 100 mg capsule 100 - 300 mg PO BEDTIME 30 Days Qty: 90 3RF docusate sodium [Colace] 100 mg capsule 100 mg PO BID PRN folic acid 1 mg tablet 1 mg PO DAILY ferrous sulfate 325 mg (65 mg iron) tablet 325 mg PO DAILY Referrals: Zachery Mckeon MD [Primary Care Provider, Internal Medicine] - 01/10/25 Print Language: Persian
--- OUTSIDE RECORDS SUMMARY | 2025-01-06 12:22 | XMS_ITS | Clinical Summary ---
Author Organization [facility] Address [address] [place] [phone] Phone Care Team Providers Care Third Rail Installer Name Role Phone Zachery Mckeon MD Primary Care Provider [phone] Allergies Active Allergy Reactions Criticality Noted Date Comments Ga Hives,Itching,Other, S welling High 06/06/2017 Ga-Courtney Flavor Hives,Itching,Swelli n g High 06/06/2017 Food Allergy Formula Itching Medium 06/06/2017 Babrbaque sauce Other Itching Low 06/06/2017 food Babrbaque sauce BBQ sauce Sertraline Hallucinations,Itchi n g,Nausea And Vomiting,Other 09/28/2016 Other Reaction(s): Other (See Comments), Other (See Comments) Hallucinations Itchy throat Tree Nut Swelling 11/19/2024 Medications albuterol HFA (PROAIR HFA ; PROVENTIL HFA ; VENTOLIN HFA) 90 mcg/actuation inhaler Inhale 2 Puffs into the lungs every 4 hours as needed for Cough or Wheezing. 11/17/19 24 Active aspirin-acetam inophen-caffei ne (EXCEDRIN MIGRAINE) 250-250-65 mg per tablet Take 1 Tablet by mouth every 6 hours as needed for Pain (headache). 11/17/19 24 Active folic acid (FOLVITE) 1 mg tablet Take 1 tablet (1 mg total) by mouth 1 (one) time each day. Take 1 Tablet by mouth daily. - Oral 90 tablet 1 07/27/19 25 Active ferrous sulfate 325 mg (65 mg elemental iron) tablet Take 1 tablet (325 mg total) by mouth 1 (one) time each day. Take 1 Tablet by mouth daily. - Oral 90 tablet 1 07/27/19 25 Active SUMAtriptan (IMITREX) 100 mg tablet Take 1 tablet (100 mg total) by mouth 1 (one) time if needed for migraine. Manage by NeurologistNAYANA KRISTIE 10/12/19 25 Active EPINEPHrine (EPIPEN) 0.3 mg/0.3 mL injection Inject 0.3 mL (0.3 mg total) into the thigh if needed for anaphylaxis. Call 911 after use. 2 each 2 10/14/19 25 026 Active docusate sodium (COLACE) 100 mg capsule Take 1 capsule (100 mg total) by mouth 2 (two) times a day. Take 1 Capsule by mouth 2 times daily as needed for Constipation. - Oral 180 capsule 10/29/19 25 Active cholecalcifero l (VITAMIN D-3) 50 mcg (2,000 unit) tablet Take 1 tablet (2,000 Units total) by mouth 1 (one) time each day. 90 tablet 3 11/20/19 25 Active amoxicillin (AMOXIL) 500 mg tablet Take 1 tablet (500 mg total) by mouth See administration instructions. Take 4 tablets by mouth one hour prior to dental procedure 4 tablet 1 12/16/19 25 Active ondansetron (ZOFRAN) 4 mg tablet Take 1 tablet (4 mg total) by mouth every 12 (twelve) hours if needed for nausea or vomiting. 20 tablet 12/24/19 25 Active amoxicillin (AMOXIL) 500 mg tablet Take 1 tablet (500 mg total) by mouth See administration instructions. Take 4 tablets by mouth one hour prior to dental procedure 4 tablet 1 10/29/19 25 025 Discontin ued(Reord er) Active Problems Problem Noted Date Diagnosed Date Transaminitis 11/18/2024 Migraine without aura and wi thout status migrainosus, not intractable 09/21/2024 Shortness of breath 09/18/2023 Anemia 06/04/2023 Heart palpitations 06/04/2023 Other chest pain 06/04/2023 Mild intermittent asthma without complication Lactose intolerance 07/09/2019 Positive MORRIS (antinuclear antibody) 05/15/2019 Overview (04/15/2024): 10/19: referred to rheumatology Psychogenic nonepileptic seizure 02/25/2017 Overview (04/15/2024): 02/19/17 .[facility] ER, observed, no intevention and d/c instructed to call Neuro for eval. 04/22 Admitted due to ? Of sz. EEG neg during episodes, non epileptic in etiology 04/19/17 Neuro: Psychogenic sz, to see therapist and psych, consider, SSRI or Buspirone 08/05/2017 had sz like episode at school, recovered well. 09/08/[address] sevilla: ageree with non epileptice episodes, no Fu. Last Assessment & Plan: 09/08/[address] sevilla: ageree with non epileptice episodes, no Fu. Anxiety and depression 09/28/2016 Overview (04/15/2024): 9-18 therapy [facility] qowkl visits Marisa for meds and [facility]son for therapy On trileptal Last Assessment & Plan: 9-18 therapy [facility]D qowkl visits [facility] for meds and [facility]son for therapy On trileptal Mild exercise-induced asthma 09/28/2016 Overview (04/15/2024): 09/28/2016 trial of albuterol 9-18 restart flovent prn MDI proair Last Assessment & Plan: 9-18 restart flovent prn MDI proair Panic attack 09/28/2016 Overview (04/15/2024): Last Assessment & Plan: 9-18 infrequent Constipation 01/04/2013 Overview (04/15/2024): miralax started 01/04/13 9-18 prn miralax Last Assessment & Plan: 9-18 prn miralax Spastic diplegic cerebral palsy (CMS/HCC V24, CM S/HCC V28) 09/08/2008 Overview (04/15/2024): S/p left varus desrotation femoral osteotomy and sartorius transfer with adductor tenotomy 04/10/09 Bladeplate remuval 09/12/10 02/27/17 [facility] : stable, some pain, to go to gait lab 04/14/17 [facility] : to go to gait lab, considering surgery again. 06/09/17 [facility]: surgery to have CT and x-rays 01/18/18 shoulder: to have surgical procedure, unable to until arrangements (needs 6 weeks of rehab post op). May go to rehab center. 03-24 f/u [facility]appt 05-24 ref to surgery for R planovalgus foot/R flat-foot reconstruction and possible a tibial derotation osteotomy surg [facility] 06-17-2018 09/01/18 [facility] reconstruction right flat foot.09-22 post-op visit flatfoot reconstruction/impt rehab.wiser-based walker at work/crutches/adjust AFO 01-22 fitted for wheel chair.L femoral anteversion more noticible when ambulates(no longer windswept)has neutral R foot progression angle following reconstruction /consider left femoral deoration osteotomy at age 20 y F/u 3m Last Assessment & Plan: 02/27/17 [facility] : stable, some pain, to go to gait lab 04/14/17 [facility] : to go to gait lab, considering surgery again. 06/09/17 [facility]: surgery to have CT and x-rays 01/18/18 shoulder: to have surgical procedure, unable to until arrangements (needs 6 weeks of rehab post op). May go to rehab center. 03-24 f/[facility] Encounters Date Type Department Care Team Description 12/23/2024 Telephone Adult Medicine [address] [phone] Zachery Mckeon MD Nausea 11/23/2024 Telephone Adult Medicine [address] [phone] Zachery Mckeon MD Med Refill 11/19/2024 3:45 PM EDT Office Visit Adult Medicine [address] [phone] Zachery Mckeon MD Postoperative anemia (Primary Dx); Migraine without aura and without status migrainosus, not intractable; Mild intermittent asthma without complication; Vitamin D deficiency disease; Food allergy; Spastic diplegic cerebral palsy ([facility] V24, [facility] V28) 11/16/2024 11:30 AM EDT Office Visit Obstetrics and Gynecology [address] [phone] Brenda Guo, MARK Irregular menstrual cycle (Primary Dx) 10/14/2024 Telephone Adult Medicine [address] [phone] Zachery Mckeon MD Medication Problem 10/13/2024 10:15 AM EDT Office Visit Adult [address] [phone] Cassius Valles NP Migraine without aura and without status migrainosus, not intractable (Primary Dx); Allergy, initial encounter; Anxiety and depression; Encounter for examination following treatment at hospital 10/13/2024 Telephone Adult Medicine [address] [phone] Kevin Alfonso LPN 10/12/2024 Telephone Adult Medicine [address] [phone] Kevin Alfonso LPN 10/07/2024 Telephone Adult Medicine [address] [phone] Aretha Negro MA Rx request from Last 3 Months Immunizations Name Administration Dates Next Due DTaP (Infanrix) 6wks to less than 7yo ,09/22/2000,1999,07/16,1999 ENpL-ART-GFJ (Pentacel) 2mo to less than 5yo 05/26/2000,1999,1999,04/27 HPV, Quadrivalent 01/20/2014,03/09/2013,01/05/20 13 Hepatitis B Pediatric (Enger ix B; Recombivax HB) to less than 20 yo 1999,1999,1999 IPV Inactivated polio (Ipol) 6wks and older 04/11/2004,09/22/2000,1999,04/27 Influenza Quadravalent, MDCK , 0.5ml, preservative free (Flucelvax) 6mo and older 05/03/2021,04/19/2020,04/05/2019,03/31 Influenza trivalent, with pr eservative (Fluzone; Afluria) 6mo and older 04/19/2017,07/20/2012 MMR, measles mumps and rubel la Live (Priorix; M-M-R II) 12mo and older 04/11/2004,05/26/2000 Meningococcal MCV4P 03/01/2016,01/01/2011 Pneumococcal Conjugate Vacci ne, 7 Valent 09/22/2000,05/26/2000 Tdap Tetanus diptheria acell ular pertussis (Boostrix; Adacel) 7yo and older 05/03/2021,01/01/2011 Varicella live (Varivax) 12m o and older 01/01/2011,02/04/2000 Surgical History Surgery Date Site/Laterality Comments DISTAL FEMUR BONE BRIDGE EXCISION 05/01/2023 Right PROCEDURE:DISTAL FEMUR BONE BRIDGE EXCISION OTHER SURGICAL HISTORY 04/10/09 PROCEDURE: IN UNLISTED PROCEDURE LEG/ANKLE; COMMENT: seen at [facility] OTHER SURGICAL HISTORY 09/12/10 PROCEDURE: IN UNLISTED PROCEDURE LEG/ANKLE; COMMENT: bladeplate remuval FOOT SURGERY 09/03/2018 Right PROCEDURE: IN UNLISTED PROCEDURE FOOT/TOES; COMMENT: Right flat foot reconstruction OTHER SURGICAL HISTORY 04/20/2019 PROCEDURE: IN UNLISTED PROCEDURE LEG/ANKLE; COMMENT: bilateral femoral derotation osteotomies, left adductor release, right quadroceps lengthening Medical History Medical History Date Comments Headache, tension-type DX:Headac he, tension-type Seizures ([facility] V24, [facility] V28) DX:Seizures ([facility]) Foster care child 09/08/2008 DX:Foster care child Spastic quadriplegia ([facility]/ C V24, [facility] V28) 09/08/2008 DX:Spastic quadriplegia (HCC ); COMMENT: followed at [facility] 01/01/2011 DX:Prematurity; COMMENT: 25 weeks Cerebral palsy (CMS/HCC V24, CMS/HCC V28) DX:Cerebral palsy (HCC) Anxiety 09/28/2016 DX:Anxiety Constipation 01/04/2013 DX:Constipation; COMMENT: miralax started 01/04/13 Food allergy 12/20/2016 DX:Food allergy; COMMENT: [facility], ref to buckle strap drum operator 12/20/2016 Mild exercise-induced asthma 09/28/2016 DX: Mild exercise-induced asthma; COMMENT: 09/28/2016 trial of albuterol Panic attack 09/28/2016 DX:Panic attack Seizure-like activity (CMS/H CC V24, CMS/HCC V28) 02/25/2017 DX:Seizure-like activity (HC C); COMMENT: 02/19/17 .[facility] ER, observed, no intevention and d/c instructed to call Neuro for eval. 04/22 Admitted due to ? Of sz. EEG neg during episodes, non epileptic in etiology 04/19/17 Neuro: Psychogenic sz, to see therapist and psych, consider, SSRI or Buspirone 08/05/2017 had sz like episode at school, recovered well. 09/08/[address] sevilla: ageree* Spastic diplegia (CMS/HCC V2 4, 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/2008 DX:Spastic diplegia (HCC); C OMMENT: S/p left varus desrotation femoral osteotomy and sartorius transfer with adductor tenotomy 04/10/09 Bladeplate remuval 09/12/10 02/27/17 [facility] : stable, some pain, to go to gait lab 04/14/17 [facility] : to go to gait lab, considering surgery again. 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/19/2021 DX:Conversio n disorder Family History Medical History Relation Name Comments Asthma Brother Alcohol/Drug Father Diabetes Maternal Grandmother ESRD Maternal Grandmother Asthma Mother Other: Lupus Mother Asthma Sister Breast cancer Neg Hx Ovarian cancer Neg Hx Uterine cancer Neg Hx Relation Name Status Comments Brother Father Alive Maternal Grandfather Maternal Grandmother Alive Mother Alive Paternal Grandfather Paternal Grandmother Alive Sister Social History Tobacco Use Types Packs/Day Years Used Date Smoking Tobacco: Never Smokeless Tobacco: Never Tobacco Cessation:Counseling Given: Not Answered Alcohol Use Standard Drinks/Week Comments No 0 (1 standard drink = 0.6 oz pur e alcohol) Comments No Sex and Gender Information Value Date Recorded Sex Assigned at Female 09/21/2024 4:21 PM EDT Legal Sex Female 6:17 PM EST Gender Identity Female 09/21/2024 4:21 PM EDT Sexual Orientation Not on file Obstetrics History Para Term AB IAB SAB Ectopic Multiple Livin g Live Births 0 0 0 0 0 0 0 0 0 0 0 Last Filed Vital Signs Vital Sign Reading Time Taken Comments Blood Pressure 98/58 11/19/2024 4:25 PM EDT Pulse 62 11/19/2024 4:25 PM EDT Temperature 36.3 C (97.4 F) 11/19/2024 4:25 PM EDT Respiratory Rate 14 11/19/2024 4:25 PM EDT Oxygen Saturation 98% 11/19/2024 4:25 PM EDT Inhaled Oxygen Concentration - - Weight 39 kg (86 lb) 11/19/2024 4:25 PM EDT Height 139.7 cm (4' 7 ) 11/19/2024 4:25 PM EDT Body Mass Index 19.99 11/19/2024 4:25 PM EDT Plan of Treatment Upcoming Encounters Date Type Department Care Team (Late st Contact Info) Description 04/22/2025 3:45 PM EDT Office Visit Adult Medicine [address] [phone] Zachery Mckeon MD [address] [place] [phone] Health Maintenance Due Date Last Done Comments Pneumococcal Vaccine: Pediatrics (0 to 5 Years) and At-Risk Patients (6 to 64 Years) (1 of 1 - PPSV23) 2005 09/22/2000, 05/26/2000 Social Influencers of Health Screening 06/15/2022 COVID-19 Vaccine ( season) 2024 10/06/2020 Depression Screening 03/02/2025 03/02/2024 Influenza Vaccine (Season Ended) 2025 05/07/2023, 05/03/2021, 04/19/2020, Additional history exists Cervical Cancer Screening: Pap Smear 11/10/2026 11/11/2023, 11/11/2023, 11/11/2023, Additional history exists Cholesterol Screening (Lipid Panel) 01/02/2028 01/01/2023 DTaP,Tdap,and Td Vaccines (8 - Td or Tdap) 05/03/2031 05/03/2021, 01/01/2011, 04/11/2004, Additional history exists Hepatitis B Vaccines Completed 1999, 1999, 1999 HIB Vaccines Completed 05/26/2000, 02/2000, 1999, Additional history exists IPV Vaccines Completed 04/11/2004, 09/04, 05/26/2000, Additional history exists MMR Vaccines Completed 04/11/2004, 05/26/2000 Varicella Vaccines Completed 01/01/2011, 02/04/2000 HPV Vaccines Completed 01/20/2014, 09/2012, 01/04/2013 Meningococcal ACWY Vaccine Completed 03/01/2016, Gonorrhea/Chlamydia Screening Discontinued 03/31/2018 HIV Screening Completed 04/15/2019 Hepatitis C Screening Completed 04/15/2019 Hepatitis A Vaccines Aged Out No long er eligible based on patient's age to complete this topic Meningococcal B Vaccine Aged Out No l onger eligible based on patient's age to complete this topic RSV Immunization Patients Under 20 months Aged Out No longer eligible based on patient's age to complete this topic Procedures Procedure Name Priority Date/Time Associated Diagnosis Comments DEPRESSION SCREENING Routine 03/02/2024 PAP SMEAR Routine 11/11/2023 LIPID PANEL Routine 01/01/2023 HEPATITIS C SCREENING Routine 04/15/2019 HIV SCREENING Routine 04/15/2019 GONORRHEA/CHLAMYDIA SCRREENING Routine 03/31/2018 from Last 3 Months or Most Recently Relevant to Health Maintenance Results * Depression Screening (03/02/2024) Pathologist [facility] Depression Screening abstracted Historical Provider HEALTH MAINTENANCE Final Result * Pap smear (11/11/2023) 11/11/2023 Narrative HISTORICAL TESTING LAB RESULTING AGENCY - 11/17/2023 1:11 PM EDT [id number] THINPREP PAP, IMAGED: NEGATIVE FOR SQUAMOUS INTRAEPITHELIAL LESION AND MALIGNANCY JENNY BAIG(ASCP) (CASE ELECTRONICALLY SIGNED 11 17 2023) ADEQUACY: SATISFACTORY ENDOCERVICAL/TRANSFORMATION ZONE COMPONENT ABSENT. SOURCE: THINPREP PAP HPV IF ASCUS, CERVICAL, IMAGED CLINICAL INFORMATION: HPV IF DIAGNOSIS OF ASCUS. HORMONES, PAP HX NEGATIVE, [[id number]] Brenda Guo [facility] LAB CYTOLOGY ORDERABLES Final Result HISTORICAL TESTING LAB RESULTING AGENCY * (ABNORMAL) Lipid panel (01/01/2023) [facility] LDL/HDL Ratio 3 0 - 4 Triglycerides 66 0 - 150 mg/dL Cholesterol 227(A) 0 - 200 mg/dL HDL 70 >=40 mg/dL LDL Cholesterol 144(A) 0 - 100 mg/dL Blood Venous blood specimen / Unknown Result [facility] Historical Provider LAB BLOOD ORDERABLES Luisa l Result * HIV Screening (04/15/2019) [facility] HIV Screening abstracted Historical Provider HEALTH MAINTENANCE Final Result * Hepatitis C Screening (04/15/2019) [facility] Hepatitis C Screening abstracted [facility] Provider HEALTH MAINTENANCE Final Result * Gonorrhea/Chlamydia Screening (03/31/2018) [facility] Gonorrhea/Chla mydia Screening abstracted us Historical Provider HEALTH MAINTENANCE Final Result from Last 3 Months or Most Recently Relevant to Health Maintenance Insurance [employer] Care Teams Third Rail Installer Relationship Specialty Start Date End Date Zachery Mckeon MD [address] [place] [address] PCP - General Internal Medicine 12/04/21
--- OUTSIDE RECORDS SUMMARY | 2025-01-06 12:22 | XMS_ITS ---
Author Name [facility] Organization Unknown History of Medication Use Medication Directions Dispensed Refills Start Date End Date Stat us hydrOXYzine (ATARAX) 25 MG tablet TAKE ONE (1) TABLET BY MOUTH TWICE A DAY, NEEDED FOR ANXIETY 10/16/2021 active Allergies Allergen Reaction Severity Comment Documented Date Source Statu s [facility] FLAVOR SWELLING Severe 06/06/2017 [facility] a ctive SERTRALINE OTHER (SEE COMMENTS) 09/28/2016 [facility] active PERRY SWELLING Severe [facility] Problems Problem Status Onset Date Problem Type Date of Resolution Source Leg length discrepancy active EncounterDiagnosisAct [facility] Spastic diplegia active EncounterDiagnosisAct [facility] Encounters Encounter Type Encounter Reason Primary Diagnosis Location Date Ambulatory [facility] 03/11/2022 Ambulatory [facility] 03/11/2022 Care Team Organization Name Specialty Phone Email Start Date End Da te [facility] Primary Care 03/11/2022
--- OUTSIDE RECORDS SUMMARY | 2025-01-06 12:22 | XMS_ITS | Clinical Summary ---
Author Organization [facility] Address [address] [place] [address] Care Team Providers Care Podiatrist Assistant Name Role Phone Zachery Mckeon MD Primary Care Provider Allergies Active Allergy Reactions Criticality Noted Date Comments Ga Hives,Other (See Comments),Itching,Swelling High 06/06/2017 Sertraline Other (See Comments) ,Itching,Nausea And Vomiting 09/28/2016 Medications No known medications Social History Tobacco Use Types Packs/Day Years Used Date Smoking Tobacco: Never Smokeless Tobacco: Never Alcohol Use Standard Drinks/Week Comments Never 0 (1 standard drink = 0.6 oz pur e alcohol) Sex and Gender Information Value Date Recorded Sex Assigned at Female 03/06/2023 2:29 PM EDT Gender Identity Not on file Sexual Orientation Not on file Job Start Date Occupation Industry Not on file Not on file Not on file Last Filed Vital Signs Vital Sign Reading Time Taken Comments Blood Pressure 118/70 08/26/2023 1:17 PM EST Pulse 78 08/26/2023 1:17 PM EST Temperature 36 C (96.8 F) 08/26/2023 1:17 PM EST Respiratory Rate - - Oxygen Saturation 100% 08/26/2023 1:17 PM EST Inhaled Oxygen Concentration - - Weight 44.5 kg (98 lb) 08/26/2023 1:17 PM EST Height 139.7 cm (4' 7 ) 08/26/2023 1:17 PM EST Body Mass Index 22.78 08/26/2023 1:17 PM EST Plan of Treatment Health Maintenance Due Date Last Done Comments Hepatitis C Screening 1999 Depression Screening 2011 Gonorrhea and Chlamydia Screening 02/01/2012 Preventative Health Evaluation 2017 Cervical Cancer Screening (Pap Smear) 02/01/2020 COVID-19 Vaccine ( season) 2024 10/06/2020 Influenza Vaccine (Season Ended) 2025 05/07/2023, 05/03/2021, 04/19/2020, Additional history exists DTap / Tdap / Td (8 - Td or Tdap) 05/03/2031 05/03/2021, 01/01/2011, 04/11/2004, Additional history exists Hepatitis B Vaccines Completed 1999, 1999, 1999 Pneumococcal Vaccine Completed 09/22/2000, 05/26/20 00 RSV Ped < 20 months Aged Out No longe r eligible based on patient's age to complete this topic Care Teams Podiatrist Assistant Relationship Specialty Start Date End Date Zachery Mckeon MD [address] [place] [id number] PCP - General Hospitalist Medicine 03/06/23
--- OUTSIDE RECORDS SUMMARY | 2025-01-06 12:22 | XMS_ITS | Clinical Summary ---
Author Organization [facility] Address [address] [place] [id number] Care Team Providers Care [employer] Professional Name Role Phone Camille Garza MD Primary Care Provider [phone] Source Comments Please note that some or all of the patient's information could have additional privacy protections. State laws allow health care providers to render certain types of treatment to minors without parental consent. Please do not assume that this information can be shared solely by obtaining just the consent of the patient's parent/guardian. Please determine if all or part of the patient's care was rendered without parent/guardian involvement. And, if so, obtain the minor's consent prior to disclosure.[facility]'s Allergies Active Allergy Reactions Criticality Noted Date Comments Ga Hives,Itching,Swelling High 06/06/2017 Ga-Courtney Flavor Hives,Itching,Swelling High 2016 Sertraline Other (See Comments) 09/28/2016 Medications blood sugar diagnostic (FREESTYLE LITE STRIPS) Strip 1 Strip by In Vitro route 4 times daily. Test sugars daily prn for hypoglycemia 2 Active FREESTYLE FREEDOM LITE kit TEST SUGARS DAILY NEEDED FOR HYPOGLYCEMIA 2 Active hydrOXYzine (ATARAX) 25 MG tablet TAKE ONE (1) TABLET BY MOUTH TWICE A DAY, NEEDED FOR ANXIETY 2 Active hydrOXYzine (ATARAX) 25 MG tablet TAKE ONE (1) TABLET BY MOUTH TWICE A DAY, NEEDED FOR ANXIETY 2 Active FREESTYLE LANCETS 28 gauge lancets TEST SUGARS DAILY NEEDED FOR HYPOGLYCEMIA 2 Active Active Problems No known active problems Family History Medical History Relation Name Comments Broken bones Neg Hx Dislocations Neg Hx Scoliosis Neg Hx Social History Tobacco Use Types Packs/Day Years Used Date Smoking Tobacco: Unknown Smokeless Tobacco: Never Alcohol Use Standard Drinks/Week Comments Not Asked 0 (1 standard drink = 0.6 oz pur e alcohol) Other Needs Answer Date Recorded Anything else about your child you'd like help w ith? Not on file 03/21/2023 Share good news about positive changes: Not on f ile 03/21/2023 Comments No Sex and Gender Information Value Date Recorded Sex Assigned at Not on file Legal Sex Female 10:43 AM EDT Gender Identity Not on file Sexual Orientation Not on file Last Filed Vital Signs Vital Sign Reading Time Taken Comments Blood Pressure 126/65 03/07/2022 1:42 PM EDT Pulse 94 03/07/2022 1:42 PM EDT Temperature - - Respiratory Rate - - Oxygen Saturation - - Inhaled Oxygen Concentration - - Weight 44.8 kg (98 lb 12.3 oz) 03/07/2022 1:42 P M EDT Height 139.7 cm (4' 7 ) 03/07/2022 1:42 PM EDT Body Mass Index 22.96 03/07/2022 1:42 PM EDT Plan of Treatment Health Maintenance Due Date Last Done Comments DTaP/TDAP/TD VACCINES (1 - Tdap) 2006 ADOLESCENT HIV SCREENING 02/01/2012 COVID-19 Vaccine (2 - 2023-2 5 season) 2024 10/06/2020 INFLUENZA (Season Ended) 2025 NIRSEVIMAB VACCINES UNDER 8 MONTHS Aged Out No longer eligible b ased on patient's age to complete this topic Insurance [facility] Care Teams [employer] Professional Relationship Specialty Start Date End Date Camille Garza MD [address] [place] [address] PCP - General Orthopaedic Surgery 02/07/22
[2025-01-06 12:29] LABS: MANUAL DIFF FLAG NO
[2025-01-06 12:33] LABS: Hematocrit 41.2 % (37.0-47.0); Hemoglobin 13.8 g/dl (12.0-16.0); Imm Gran Abs Auto 0.01 X10*3/uL (0.00-0.03); Imm Gran Pct Auto 0.2 % (0.0-0.4); Lymphocytes Absolute Auto 2.4 X10*3/uL (1.2-4.9); Mean Corpuscular HGB Conc 33.5 g/dl (31.0-35.0); Mean Corpuscular Hemoglobin 27.0 pg (27.0-33.0); Mean Corpuscular Volume 80.6 fL (80.0-98.0); NRBC Abs Auto 0.000 X10*3/uL (0.0-0.012); NRBC Pct Auto 0.0 /100WBC (0.0-0.2); Platelet Count 234 X10*3/uL (160-400); Red Blood Count 5.11 X10*6/uL (4.20-5.50); White Blood Count 6.4 X10*3/uL (4.8-10.8)
[2025-01-06 12:50] VITALS: BP 106/57; PULSE 68; RESP 18; TEMP 36.6; O2SAT 98
[2025-01-06 13:00] LABS: Anion Gap 12 (12-20); Blood Urea Nitrogen 8 mg/dL (9-16); Calcium 8.8 mg/dL (8.4-10.2); Carbon Dioxide 23 mmol/L (22-29); Chloride 107 mmol/L (96-108); Creatinine Clr Calc Pharmacy 108.5; Estimated Glomerular Filt Rate > 60; Potassium 3.5 mmol/L (3.3-5.1); Sodium 138 mmol/L (135-145)
[2025-01-06 16:08] VITALS: BP 106/57; PULSE 68; RESP 18; TEMP 36.6; O2SAT 98
== END 2025-01-06 16:25 | disposition home or self-care (01) ==
PROVIDERS: Emergency Provider Emergency Medicine Emergency Medical Services; PCP Internal Medicine
DX: M25.552 Pain in left hip (principal); R60.0 Localized edema; M25.562 Pain in left knee; Z79.899 Other long term (current) drug therapy
CPT/HCPCS: 36415; 73502; 73562; 80048; 84702; 85025; 93971; 96361; 96374; 99284; J2405

== ENCOUNTER → 2025-01-06 11:49 | Outpatient (BNV) | payer OTHER, SELFPAY | PROVIDERS: Emergency Provider Emergency Medicine Emergency Medical Services; PCP Internal Medicine; Visit Provider Radiology Diagnostic Radiology | DX: M79.662 Pain in left lower leg (principal); M25.552 Pain in left hip; M17.12 Unilateral primary osteoarthritis, left knee | CPT/HCPCS: 73502; 73562; 93971 ==

== ENCOUNTER 2025-01-18 13:41 | Outpatient (AMB) | payer OTHER, SELFPAY ==
[2025-01-18 13:58] VITALS: BP 122/74; PULSE 95; O2SAT 98; BMI 20.8
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
--- OUTSIDE RECORDS SUMMARY | 2025-01-18 15:02 | XMS_ITS | Clinical Summary ---
Author Organization [facility] Address [address] [place] [phone] Phone Care Team Providers Care Salesperson Florist Supplies Name Role Phone Zachery Mckeon MD Primary [...] for Cough or Wheezing. 11/17/19 24 Active aspirin-aceta minophen-caff eine (EXCEDRIN MIGRAINE) 250-250-65 mg per tablet Take 1 Tablet by mouth every 6 hours as needed for Pain (headache). 11/17/19 24 Active SUMAtriptan (IMITREX) 100 mg tablet Take 1 tablet (100 mg total) by mouth 1 (one) time if needed for migraine. Manage by Neurologist, EDITH KRAUS 10/12/19 25 Active EPINEPHrine (EPIPEN) 0.3 mg/0.3 mL injection Inject 0.3 mL (0.3 mg total) into the thigh if needed for anaphylaxis. Call 911 after use. 2 each 2 10/14/19 25 2025 Active docusate sodium (COLACE) 100 mg capsule Take 1 capsule (100 mg total) by mouth 2 (two) times a day. Take 1 Capsule by mouth 2 times daily as needed for Constipation. - Oral 180 capsule 10/29/19 25 Active cholecalcifer ol (VITAMIN D-3) 50 mcg (2,000 unit) tablet [...] or vomiting. 20 tablet 12/24/19 25 Active folic acid (FOLVITE) 1 mg tablet Take 1 tablet (1 mg total) by mouth 1 (one) time each day. Take 1 Tablet by mouth daily. - Oral 90 tablet 1 07/27/19 25 2024 Discontinued ferrous sulfate 325 mg (65 mg elemental iron) tablet Take 1 tablet (325 mg total) by mouth 1 (one) time each day. Take 1 Tablet by mouth daily. - Oral 90 tablet 1 07/27/19 25 2024 Discontinued Active Problems Problem Noted Date Diagnosed Date Transaminitis 11/18/2024 Migraine without aura and wi thout status migrainosus, not intractable 09/21/2024 Shortness of breath 09/18/2023 Anemia 06/04/2023 Heart palpitations 06/04/2023 Other chest pain 06/04/2023 Mild intermittent asthma without complication Lactose intolerance 07/09/2019 Positive MORRIS (antinuclear antibody) 05/15/2019 Overview (04/15/2024): 04/24: referred to rheumatology Psychogenic nonepileptic seizure 02/25/2017 Overview (04/15/2024): 02/19/17 .[facility] ER, observed, no intevention and d/c [...] Fu. Anxiety and depression 09/28/2016 Overview (04/15/2024): 03-24 therapy [facility] qowkl visits Marisa for meds and Sumaya Jesus for therapy On trileptal Last Assessment & Plan: 03-24 therapy [facility] qowkl visits [facility] for meds and Sumaya Jesus for therapy On trileptal Mild exercise-induced asthma 09/28/2016 Overview (04/15/2024): 09/28/2016 trial of albuterol 03-24 restart flovent prn MDI proair Last Assessment & Plan: 03-24 restart flovent prn MDI proair Panic attack 09/28/2016 Overview (04/15/2024): Last Assessment & Plan: 9-18 infrequent Constipation 01/04/2013 Overview (04/15/2024): miralax started 01/04/13 9-18 prn miralax Last Assessment & Plan: - prn miralax Spastic diplegic cerebral palsy (CMS/HCC V24, CM S/HCC V28) 09/08/2008 Overview (04/15/2024): S/p left varus desrotation femoral osteotomy and sartorius transfer with adductor tenotomy 04/10/09 Bladeplate remuval 09/12/10 02/27/17 [facility] : stable, some pain, to go to gait lab 04/14/17 [facility] : to go to gait lab, considering surgery again. 12/4/17 [facility]: surgery to have CT and x-rays 01/18/18 shoulder: to have surgical procedure, unable to until arrangements (needs 6 weeks of rehab post op). May go to rehab center. - f/u [facility]appt 05-24 ref to surgery for [...] Encounters Date Type Department Care Team Description 01/11/2025 Telephone Adult Medicine [address] [phone] Zachery Mckeon MD Medication Problem 12/23/2024 Telephone Adult Medicine [address] [phone] Zachery Mckeon MD Nausea 11/23/2024 Telephone Adult Medicine [address] [phone] Zachery Mckeon MD Med Refill 11/19/2024 3:45 PM EDT Office Visit Adult [address] [phone] Zachery Mckeon MD Postoperative anemia (Primary Dx); Migraine without aura and without status migrainosus, not intractable; Mild intermittent asthma without complication; Vitamin D deficiency disease; Food allergy; Spastic diplegic cerebral palsy ([facility] V24, [facility] V28) 11/16/2024 11:30 AM EDT Office Visit Obstetrics and Gynecology [address] [phone] Brenda Guo, MARK Irregular menstrual cycle (Primary Dx) from Last 3 Months Immunizations Name Administration Dates Next Due DTaP (Infanrix) 6wks to less than 7yo ,09/22/2000,1999,07/16,1999 [id number] (Pentacel) 2mo to less than 5yo 05/26/2000,1999,1999,04/27 [...] BRIDGE EXCISION OTHER SURGICAL HISTORY 04/10/09 PROCEDURE: UT UNLISTED PROCEDURE LEG/ANKLE; COMMENT: seen at [facility] OTHER SURGICAL HISTORY 09/12/10 PROCEDURE: UT UNLISTED PROCEDURE LEG/ANKLE; COMMENT: bladeplate remuval FOOT SURGERY 09/03/2018 Right PROCEDURE: UT UNLISTED PROCEDURE FOOT/TOES; COMMENT: Right flat foot reconstruction OTHER SURGICAL HISTORY 04/20/2019 PROCEDURE: UT UNLISTED PROCEDURE LEG/ANKLE; COMMENT: bilateral femoral derotation osteotomies, left adductor release, right quadroceps lengthening Medical History Medical History Date Comments Headache, tension-type DX:Headac he, tension-type Seizures ([facility]/HCC V24, [facility] V28) DX:Seizures ([facility]) Foster care child 09/08/2008 DX:Foster care child Spastic quadriplegia (CMS/HC C V24, [facility]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) 09/08/2008 DX:Spastic quadriplegia ([facility] ); COMMENT: followed at [facility] Prematurity 01/01/2011 DX:Prematurity; COMMENT: 25 weeks Cerebral palsy (CMS/HCC V24, CMS/HCC V28) DX:Cerebral palsy ([facility]) Anxiety 09/28/2016 DX:Anxiety Constipation 01/04/2013 DX:Constipation; COMMENT: miralax started 01/04/13 Food allergy 12/20/2016 DX:Food allergy; COMMENT: [facility], ref to tobacco grader 12/20/2016 Mild exercise-induced asthma 09/28/2016 DX: Mild exercise-induced asthma; COMMENT: 09/28/2016 trial of albuterol Panic attack 09/28/2016 DX:Panic attack Seizure-like activity (CMS/H CC V24, CMS/HCC V28) 02/25/2017 DX:Seizure-like activity (HC C); COMMENT: 02/19/17 .[facility] ER, observed, no intevention and d/c [...] V2 4, 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/2008 DX:Spastic diplegia ([facility]); C OMMENT: S/p left varus desrotation femoral [...] 3:45 PM EDT Office Visit Adult Medicine [facility] [address] [place] [phone] Zachery Mckeon MD [address] [place] [address] Health Maintenance Due Date Last Done Comments Pneumococcal Vaccine: Pediatrics (0 to 5 Years) and At-Risk Patients (6 to 49 Years) (1 of 1 - PPSV23) 2005 09/22/2000, 05/26/2000 Social Influencers of Health Screening 06/15/2022 COVID-19 Vaccine (2 - season) 2024 10/06/2020 Depression Screening 03/02/2025 03/02/2024 Influenza Vaccine (#1) 2025 , 05/03/2021, 04/19/2020, Additional history exists Cervical Cancer [...] Completed 01/01/2011, 02/04/2000 HPV Vaccines Completed 01/20/2014, 09/0 09/2012, 01/04/2013 Meningococcal ACWY Vaccine Completed 03/01/2016, [...] Procedure Name Priority Date/Time Associated Diagnosis Comments EXTERNAL VASCULAR ULTRASOUND 01/06/2025 EXTERNAL VASCULAR ULTRASOUND 01/06/2025 EXTERNAL XRAY REPORT 01/06/2025 EXTERNAL XRAY REPORT 01/06/2025 EXTERNAL XRAY REPORT 01/06/2025 EXTERNAL XRAY REPORT 01/06/2025 DEPRESSION SCREENING Routine 03/02/2024 PAP SMEAR Routine 11/11/2023 LIPID PANEL Routine 01/01/2023 HEPATITIS C SCREENING Routine 04/15/2019 HIV SCREENING Routine 04/15/2019 GONORRHEA/CHLAMYDIA SCRREENING Routine 03/31/2018 from Last 3 Months or Most Recently Relevant to Health Maintenance Results * External Vascular Ultrasound (01/06/2025) Only the most recent of2 resultswithin the time period is included. Anatomical Region Laterality Modality Ultrasound us Provider [facility] CV VASCULAR PROCEDURES F inal Result * External Xray Report (01/06/2025) Only the most recent of4 resultswithin the time period is included. Anatomical Region Laterality Modality Radiographic Monica ging us Provider [facility] IMG XR PROCEDURES Final Result * Depression Screening (03/02/2024) Depression Screening abstracted Historical Provider HEALTH MAINTENANCE Final Result * Pap smear (11/11/2023) 11/11/2023 Narrative HISTORICAL TESTING LAB RESULTING AGENCY - 11/17/2023 1:11 PM EDT [id number] THINPREP PAP, IMAGED: NEGATIVE FOR SQUAMOUS INTRAEPITHELIAL LESION AND MALIGNANCY TELMA GONSALES , CT(ASCP) (CASE ELECTRONICALLY SIGNED 11 17 2023) ADEQUACY: SATISFACTORY ENDOCERVICAL/TRANSFORMATION ZONE COMPONENT ABSENT. SOURCE: THINPREP PAP HPV IF ASCUS, CERVICAL, IMAGED CLINICAL INFORMATION: HPV IF DIAGNOSIS OF ASCUS. HORMONES, PAP HX NEGATIVE, [[id number]] Result [facility] Brenda Guo CNM LAB CYTOLOGY ORDERABLES Final Result HISTORICAL TESTING LAB RESULTING AGENCY * (ABNORMAL) Lipid panel (01/01/2023) LDL/HDL Ratio 3 0 - 4 Triglycerides 66 0 - 150 mg/dL Cholesterol 227(A) 0 - 200 mg/dL HDL 70 >=40 mg/dL LDL Cholesterol 144(A) 0 - 100 mg/dL Blood Venous blood specimen / Unknown Result [facility] Historical Provider LAB BLOOD ORDERABLES Luisa l Result * HIV Screening (04/15/2019) Pathologist [facility] HIV Screening abstracted Historical Provider HEALTH MAINTENANCE Final Result * Hepatitis C Screening (04/15/2019) Pathologist [facility] Hepatitis C Screening abstracted Historical Provider HEALTH MAINTENANCE Final Result * Gonorrhea/Chlamydia Screening (03/31/2018) Pathologist [facility] Gonorrhea/Chla mydia Screening abstracted Historical Provider HEALTH MAINTENANCE Final Result from Last 3 Months or Most Recently Relevant to Health Maintenance Insurance [facility] Care Teams Salesperson Florist Supplies Relationship Specialty Start Date End Date Zachery Mckeon MD [address] [place] [address] PCP - General Internal Medicine 12/04/21
--- OUTSIDE RECORDS SUMMARY | 2025-01-18 15:02 | XMS_ITS | Clinical Summary ---
Author Organization [facility] Address [address] [place] [address] Care Team Providers Care Athletic Coordinator Name Role Phone Zachery Mckeon MD Primary [...] Vaccine ( season) 2024 10/06/2020 Influenza Vaccine (#1) 2025 3, 05/03/2021, 04/19/2020, Additional history exists DTap / Tdap / Td (8 - Td or Tdap) 05/03/2031 05/03/2021, 01/01/2011, 04/11/2004, Additional history exists Hepatitis B Vaccines Completed 1999, 1999, 1999 Pneumococcal Vaccine Completed 09/22/2000, 05/26/20 00 RSV Ped < 20 months Aged Out No longe r eligible based on patient's age to complete this topic Care Teams Athletic Coordinator Relationship Specialty Start Date End Date Zachery Mckeon MD [address] [place] [id number] PCP - General Hospitalist Medicine 03/06/23
== END 2025-01-18 14:57 | disposition home or self-care (01) ==
LOC: HO.HSMS 13:42
PROVIDERS: Visit Provider Nurse Practitioner Family
DX: R56.9 Unspecified convulsions (principal); R41.3 Other amnesia; R25.2 Cramp and spasm; G80.1 Spastic diplegic cerebral palsy
CPT/HCPCS: 99213

== ENCOUNTER → 2025-01-18 13:41 | Outpatient (BNVA) | payer OTHER, SELFPAY | PROVIDERS: Visit Provider Nurse Practitioner Family | DX: G80.1 Spastic diplegic cerebral palsy (principal); R41.3 Other amnesia; R25.2 Cramp and spasm; R56.9 Unspecified convulsions | CPT/HCPCS: 99212 ==

== ENCOUNTER 2025-04-16 13:39 | Emergency (ER) | payer OTHER, SELFPAY ==
--- NOTE | ~2025-04-16 | XR_ITS ---
CLINICAL HISTORY: Abdominal pain 1 view abdomen Comparison: None provided Findings: No pneumoperitoneum or pneumatosis. Moderate stool burden. No abnormal calcifications. Possible asymmetric long right 12th rib with fracture and angulation. 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 IMPRESSION: The bowel gas pattern is within normal limits. Possible asymmetric long right 12th rib with fracture and angulation. Clinical correlation is recommended. CT evaluation as indicated. This document has been electronically signed by: Abi Mendez MD on 04/16/2025 16:13:05
[2025-04-16 13:43] VITALS: BP 132/80; PULSE 78; PULSE 83; RESP 19; TEMP 36.5; O2SAT 100; BMI 22.8
[2025-04-16 13:49] LABS: Glucose, Whole Blood 103 mg/dL (60-115)
[2025-04-16 14:15] VITALS: BP 121/67
--- NOTE | 2025-04-16 14:27 | ED.ABDPAIN ---
HPI - Abdominal Pain General Chief Complaint: Abdominal Pain Stated Complaint: ABD PAIN Time Seen by Provider: 04/16/25 14:15 Source: patient and EMS Mode of arrival: EMS Limitations: no limitations History of Present Illness ED Provider: HPI narrative: 25-year-old woman with history of psychogenic nonepileptic seizures, presented with a few issues, reportedly she started developing abdominal pain she states that she had abdominal cramping was intense and it has improved in emergency department, when EMS was called they witnessed to seizure-like activity she has no medications administered, to them patient appeared to be postictal, patient does have history of cerebral palsy, with prior surgeries in the legs states lives independently, other report is that she states she has difficulty urinating and has had dark urine today. Related Data Home Medications ?Medication ?Instructions ?Recorded ?Confirmed docusate sodium 100 mg capsule 100 mg PO BID PRN 07/14/24 07/14/24 (Colace) ondansetron HCl 4 mg tablet mg PO 01/18/25 Allergies Allergy/AdvReac Type Severity Reaction Status Date / Time sertraline (From Zoloft) Allergy Unknown Verified 01/18/25 14:01 Review of Systems Constitutional: Reports as per HPI [facility] Past Medical History Medical History Recent surgical procedure on lower extremity PTSD (post-traumatic stress disorder) Surgical History History of right femoral derotational osteotomy (~2022) History of left femoral derotational osteotomy (~09/02/24) Social History Social History Household Members: None Housing: Apartment Housing Other:: Supervised/supported living Do you presently have visiting nurse or other home services: No Alcohol intake: never Patient Tobacco Use Status: Never used Tobacco Smoked in Last 30 Days: No e-Cigarette/Vaping Use: Never Used Second Hand Smoke Exposure: No Use of substances other than those prescribed or required for medical reasons: No Substance Use Type: Marijuana Advance Directives: No Advance Directives Information Provided: No Do you have a plan to hurt others: No Plan service: No Sexual orientation: Straight/Heterosexual Physical Exam ED Vital Signs: Vital Signs - 24 hr 04/16/25 13:43 04/16/25 14:15 Temperature 97.7 F Pulse Rate 78 Respiratory Rate 19 Blood Pressure 121/67 Pulse Oximetry 100 Oxygen Delivery Method Room Air BMI result Body Mass Index 22.8 Const Other: General: ?Appears of stated age ? ?CV: RRR, no obvious murmurs appreciated ? ?Resp: ?No wheezing rales rhonchi no stridor moving air well ? Abd: ?Bowel sounds are present, no tenderness no rebound no rigidity ? ?MSK: Decreased range of motion but able to lift up her legs, no edema noted ? Skin: Warm, dry, intact, scars from prior surgeries on patient's legs ? ?Neuro: ?Alert and oriented x3, moving upper and lower extremities symmetrically, no obvious facial asymmetry noted, cranial nerves 2-12 intact Medical Decision Making Medical Decision Making [facility] Narrative: 2:36 PM 04/16/2025 (Dr. Dell Victoria): Overall well-appearing patient, she is not postictal she is alert oriented, she is nonfebrile, denies being sexually active unlikely ectopic , there was no ongoing abdominal pain at this time I doubt ovarian torsion, we will check KUB for volvulus she is ambulatory but also has a history of cerebral palsy and does spend quite a bit of time sedentary, volvulus is a consideration, she has no systemic findings such as nausea or vomiting and fevers to suspect involved infectious etiology such as pyelonephritis Differential Diagnosis Differential Diagnoses: The differential diagnosis associated with the presentation includes (Psychogenic seizures, , volvulus, SBO, ovarian torsion, dehydration, epilepsy, UTI, pyelonephritis) Admission/Observation Consideration of admission/observation: Escalation of care including admission/observation considered Lab Data [facility] Lab Attestation statement: I reviewed the patient's lab results. 04/16/25 14:28 04/16/25 14:28 Labs: Lab Results 04/16/25 04/16/25 04/16/25 Range/Units 13:45 14:28 15:39 WBC 5.1 (4.8-10.8) X10*3/uL RBC 4.88 (4.20-5.50) X10*6/uL Hgb 13.3 (12.0-16.0) g/dl Hct 40.2 (37.0-47.0) % MCV 82.4 (80.0-98.0) fL MCH 27.3 (27.0-33.0) pg MCHC 33.1 (31.0-35.0) g/dl RDW 13.0 (11.0-16.0) % Plt Count 280 (160-400) X10*3/uL MPV 9.2 L (9.4-12.3) fL Immature Gran % (Auto) 0.4 (0.0-0.4) % Neut % (Auto) 58.9 (45-73) % Lymph % (Auto) 33.1 (20-40) % [place] % (Auto) 5.8 (2-11) % Eos % (Auto) 1.4 (0-4) % Baso % (Auto) 0.4 (0-2) % Lymph # (Auto) 1.7 (1.2-4.9) X10*3/uL [place] # (Auto) 0.3 (0.1-1.2) X10*3/uL Eos # (Auto) 0.1 (0.0-0.4) X10*3/uL Baso # (Auto) 0.0 (0.0-0.2) X10*3/uL Abs Immat Gran (auto) 0.02 (0.00-0.03) X10*3/uL Absolute Neuts (auto) 3.0 (2.0-8.3) x10*3/uL Absolute Nucleated RBC 0.000 (0.0-0.012) X10*3/uL Nucleated RBC % (auto) 0.0 (0.0-0.2) /100WBC PT 13.2 H (10.9-12.4) SEC INR 1.2 H (0.9-1.1) Sodium 139 (135-145) mmol/L Potassium 3.6 (3.3-5.1) mmol/L Chloride 108 (96-108) mmol/L Carbon Dioxide 21 L (22-29) mmol/L Anion Gap 14 (12-20) BUN 10 (9-16) mg/dL Creatinine 0.56 (0.5-1.4) mg/dL Estim Creat Clear Calc 91.7 Estimated GFR > 60 POC Glucose 103 (60-115) mg/dL Random Glucose 105 (60-115) mg/dL Lactic Acid 1.9 (0.5-2.0) mmol/L Calcium 8.7 (8.4-10.2) mg/dL Magnesium 1.9 (1.6-2.6) mg/dL Total Bilirubin 0.4 (0.0-1.0) mg/dL AST 27 (5-31) U/L ALT 26 (0-31) U/L Alkaline Phosphatase 60 (39-117) U/L Troponin I High Sens < 2.7 (<3.5-17.0) ng/L Total Protein 6.8 (6.5-8.0) g/dL Albumin 4.4 (3.5-5.0) g/dL Lipase 21 (8-78) U/L Urine Color Yellow Urine Appearance Clear Urine pH 6.5 (5.0-9.0) Ur Specific [place] 1.010 (1.005-1.025) Urine Protein Negative (Neg-Trace) mg/dL Urine Glucose (UA) Negative (Negative) mg/dL Urine Ketones 15 (Negative) mg/dL Urine Blood Negative (Negative) Urine Nitrite Negative (Negative) Ur Leukocyte Esterase Negative (Negative) Independent Interpretation I performed an independent interpretation of an: EKG (66 beats per minute, no QTC prolongation, no dysrhythmia normal EKG) and Plain X-Ray (No obstructive patterns, no free air, no foreign bodies) Radiology Impression Discussion of test interpretation with radiology: I have reviewed the radiologist's reading. Discharge Plan Discharge Clinical Impression: Abdominal pain, Psychogenic nonepileptic seizure Patient Disposition: Home, Self-Care Instructions: Abdominal Pain (ED) Additional Instructions: Evaluated with abdominal pain, concern for dark urine, your blood work has been reassuring there was no evidence for dehydration or infection, you did receive fluids, I was obtain an x-ray of the abdomen to make sure there was no abnormalities such as obstruction and the x-ray has been reassuring, EKG unremarkable, please follow up with the PCP any other issues or concerns come back to the ER Prescriptions: No Action docusate sodium [Colace] 100 mg capsule 100 mg PO BID PRN ondansetron HCl 4 mg tablet PO Referrals: Zachery Mckeon MD [Primary Care Provider, Internal Medicine] Interventions: ED Discharge Assessment Last Done: 04/16/25 18:53 Discharge Date/Time: 04/16/25 18:56 Print Language: [place]
[2025-04-16 14:34] LABS: MANUAL DIFF FLAG NO
--- OUTSIDE RECORDS SUMMARY | 2025-04-16 14:34 | XMS_ITS | Clinical Summary ---
Author Organization [facility] Address [address] [place] [address] Phone Care Team Providers Care Office Assistant Receptionist Name Role Phone Zachery Mckeon MD Primary Care Provider [phone] Allergies Active Allergy Reactions Criticality Noted Date [...] hours as needed for Cough or Wheezing. 4 Active aspirin-acetam inophen-caffei ne (EXCEDRIN MIGRAINE) 250-250-65 mg per tablet Take 1 Tablet by mouth every 6 hours as needed for Pain (headache). 4 Active SUMAtriptan (IMITREX) 100 mg tablet Take 1 tablet (100 mg total) by mouth 1 (one) time if needed for migraine. Manage by NeurologistNAYANA KRISTIE 5 Active EPINEPHrine (EPIPEN) 0.3 mg/0.3 mL injection Inject 0.3 mL (0.3 mg total) into the thigh if needed for anaphylaxis. Call 911 after use. 2 each 2 5 026 Active docusate sodium (COLACE) 100 mg capsule Take 1 capsule (100 mg total) by mouth 2 (two) times a day. Take 1 Capsule by mouth 2 times daily as needed for Constipation. - Oral 180 capsule 5 Active cholecalcifero l (VITAMIN D-3) 50 mcg (2,000 unit) tablet Take 1 tablet (2,000 Units total) by mouth 1 (one) time each day. 90 tablet 3 5 Active ondansetron (ZOFRAN) 4 mg tablet Take 1 tablet (4 mg total) by mouth every 12 (twelve) hours if needed for nausea or vomiting. 20 tablet 5 Active amoxicillin (AMOXIL) 500 mg tablet Take 1 tablet (500 mg total) by mouth See administration instructions. Take 4 tablets by mouth one hour prior to dental procedure 4 tablet 1 5 Active Active Problems Problem Noted Date Diagnosed Date Transaminitis 11/18/2024 Migraine without aura and wi thout status migrainosus, not intractable 09/21/2024 Shortness of breath 09/18/2023 Anemia 06/04/2023 Heart palpitations 06/04/2023 Other chest pain 06/04/2023 Mild intermittent asthma without complication Lactose intolerance 07/09/2019 Positive MORRIS (antinuclear antibody) 05/15/2019 Overview (04/15/2024): 04/24: referred to rheumatology Psychogenic nonepileptic seizure 02/25/2017 Overview (04/15/2024): 02/19/17 .[facility] ER, observed, no intevention and d/c [...] Fu. Anxiety and depression 09/28/2016 Overview (04/15/2024): 9- therapy CHD qowkl visits Marisa for meds and Sumaya Carlson for therapy On trileptal Last Assessment & Plan: 03-24 therapy CHD qowkl visits Marisa for meds and Sumaya Carlson for therapy On trileptal Mild exercise-induced asthma 09/28/2016 Overview (04/15/2024): 09/28/2016 trial of albuterol 03-24 restart flovent prn MDI proair Last Assessment & Plan: 03-24 restart flovent prn MDI proair Panic attack 09/28/2016 Overview (04/15/2024): Last Assessment & Plan: 03-24 infrequent Constipation 01/04/2013 Overview (04/15/2024): miralax started 01/04/13- prn miralax Last Assessment & Plan: 03-24 prn miralax Spastic diplegic cerebral palsy (CMS/HCC [...] Encounters Date Type Department Care Team Description 03/31/2025 10:00 AM EDT Office Visit [address] [phone] Silva Gross PA Dysfunction of both eustachian tubes (Primary Dx); Migraine without aura and without status migrainosus, not intractable 03/28/2025 Telephone Adult [address] [phone] Zachery Mckeon MD 03/02/2025 10:00 AM EDT Office Visit [address] [phone] Zachery Mckeon MD Dizziness (Primary Dx); Migraine without aura and without status migrainosus, not intractable; Hypoglycemia; Screening for deficiency anemia; Screening for thyroid disorder 02/28/[address] [phone] Zachery Mckeon MD from Last 3 Months Immunizations Immunization Administration Dates Next Due DTaP (Infanrix) 6wks to less than 7yo ,09/22/2000,1999,07/16,1999 AVwP-SOU-MEB (Pentacel) 2mo to less than 5yo 05/26/2000,1999,1999,04/27 [...] IN UNLISTED PROCEDURE LEG/ANKLE; COMMENT: seen at [facility] OTHER SURGICAL HISTORY 09/12/10 PROCEDURE: IN UNLISTED PROCEDURE LEG/ANKLE; COMMENT: bladeplate remuval FOOT SURGERY 09/03/2018 Right PROCEDURE: IN UNLISTED PROCEDURE FOOT/TOES; COMMENT: Right flat foot reconstruction OTHER SURGICAL HISTORY 04/20/2019 PROCEDURE: IN UNLISTED PROCEDURE LEG/ANKLE; COMMENT: bilateral femoral derotation osteotomies, left adductor release, right quadroceps lengthening Medical History Medical History Date Comments Headache, tension-type DX:Headac he, tension-type Seizures (CMS/HCC V24, CMS/HCC V28) DX:Seizures ([facility]) Foster care child 09/08/2008 DX:Foster care child Spastic quadriplegia (CMS/HC C V24, 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/2008 DX:Spastic quadriplegia ([facility] ); COMMENT: followed at [facility] 01/01/2011 DX:Prematurity; COMMENT: 25 weeks Cerebral palsy (CMS/HCC V24, CMS/HCC V28) DX:Cerebral palsy ([facility]) Anxiety 09/28/2016 DX:Anxiety Constipation 01/04/2013 DX:Constipation; COMMENT: miralax started 01/04/13 Food allergy 12/20/2016 DX:Food allergy; COMMENT: Sury, ref to java manager 12/20/2016 Mild exercise-induced asthma 09/28/2016 DX: Mild exercise-induced asthma; COMMENT: 09/28/2016 trial of albuterol Panic attack 09/28/2016 DX:Panic attack Seizure-like activity (CMS/H CC V24, CMS/HCC V28) 02/25/2017 DX:Seizure-like activity (HC C); COMMENT: 02/19/17 .[facility] ER, observed, no intevention and d/c [...] V2 4, 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/2008 DX:Spastic diplegia ([facility]); C OMMENT: S/p left varus desrotation femoral [...] Tobacco: Never Alcohol Use Standard Drinks/Week Comments No 0 [...] Sign Reading Time Taken Comments Blood Pressure 107/63 03/31/2025 10:09 AM EDT Pulse 61 03/31/2025 10:09 AM EDT Temperature 36.4 C (97.6 F) 03/31/2025 10:09 AM EDT Respiratory Rate 16 03/31/2025 10:09 AM EDT Oxygen Saturation 98% 11/19/2024 4:25 PM EDT Inhaled Oxygen Concentration - - Weight 40.4 kg (89 lb) 03/31/2025 10:09 AM EDT Height 139.7 cm (4' 7 ) 03/31/2025 10:09 AM EDT Body Mass Index 20.69 03/31/2025 10:09 AM EDT Plan of Treatment Upcoming Encounters Date Type Department Care Team (Late st Contact Info) Description 04/22/2025 3:45 PM EDT Office Visit Adult Medicine [address] [phone] Zachery Mckeon MD [address] [place] [address] 09/26/2025 2:00 PM EDT Office Visit Obstetrics and Gynecology - [place] [address] [facility] [place] [phone] Brenda Guo, [facility] [place] [facility] Maintenance Due Date Last Done Comments Pneumococcal Vaccine: Pediatrics (0 to 5 Years) and At-Risk Patients (6 to 49 Years) (1 of 1 - PPSV23, PCV20, or PCV21) 2005 09/22/2000, 05/26/2000 Social Influencers of Health Screening 06/15/2022 Depression Screening 07/07/2024 03/02/2024 COVID-19 Vaccine ( season) 2025 10/06/2020 Influenza Vaccine (#1) 2025 , 05/03/2021, 04/19/2020, Additional history exists Cervical Cancer Screening: Pap Smear 11/10/2026 11/11/2023, 11/11/2023, 11/11/2023, Additional history exists Cholesterol Screening (Lipid Panel) 01/02/2028 01/01/2023 DTaP,Tdap,and Td Vaccines (8 - Td or Tdap) 05/03/2031 05/03/2021, 01/01/2011, 04/11/2004, Additional history exists RSV Immunization Adult Patients (1 - 1-dose 75+ series) 2074 Hepatitis B Vaccines Completed 1999, 1999, 1999 [...] Procedure Name Priority Date/Time Associated Diagnosis Comments CBC WITH AUTO DIFFERENTIAL Routine 03/02/2025 10:40 AM EDT Dizziness Migraine without aura and without status migrainosus, not intractable Hypoglycemia Screening for deficiency anemia Screening for thyroid disorder HEMOGLOBIN A1C Routine 03/02/2025 10:40 AM EDT Dizziness Migraine without aura and without status migrainosus, not intractable Hypoglycemia Screening for deficiency anemia Screening for thyroid disorder CBC AND DIFFERENTIAL Routine 03/02/2025 10:40 AM EDT Dizziness Migraine without aura and without status migrainosus, not intractable Hypoglycemia Screening for deficiency anemia Screening for thyroid disorder BASIC METABOLIC PANEL Routine 03/02/2025 10:40 AM EDT Dizziness Migraine without aura and without status migrainosus, not intractable Hypoglycemia Screening for deficiency anemia Screening for thyroid disorder C-PEPTIDE Routine 03/02/2025 10:40 AM EDT Dizziness Migraine without aura and without status migrainosus, not intractable Hypoglycemia Screening for deficiency anemia Screening for thyroid disorder INSULIN, TOTAL Routine 03/02/2025 10:40 AM EDT Dizziness Migraine without aura and without status migrainosus, not intractable Hypoglycemia Screening for deficiency anemia Screening for thyroid disorder PROINSULIN Routine 03/02/2025 10:40 AM EDT Dizziness Migraine without aura and without status migrainosus, not intractable Hypoglycemia Screening for deficiency anemia Screening for thyroid disorder THYROID STIMULATING HORMONE WITH REFLEX TO FREE T4 AND FREE T3 Routine 03/02/2025 10:40 AM EDT Dizziness Migraine without aura and without status migrainosus, not intractable Hypoglycemia Screening for deficiency anemia Screening for thyroid disorder DEPRESSION SCREENING Routine 03/02/2024 PAP SMEAR Routine 11/11/2023 LIPID PANEL Routine 01/01/2023 HEPATITIS C SCREENING Routine 04/15/2019 HIV SCREENING Routine 04/15/2019 GONORRHEA/CHLAMYDIA SCRREENING Routine 03/31/2018 from Last 3 Months or Most Recently Relevant to Health Maintenance Results * Thyroid stimulating hormone with reflex to free t4 and free t3 (03/02/2025 10:40 AM EDT) Pathologist [facility] TSH 2.02 0.40 - 4.00 mcIU/mL LAB CHEMISTRY METHOD 03/02/2025 2:06 PM EDT [facility] Blood Venous blood specimen / Unknown Venipuncture / Unknown 03/02/2025 10:40 AM EDT 03/02/2025 10:40 AM EDT us Zachery Mckeon MD LAB BLOOD ORDERABLES Final Result [facility] [address] [place] [address], [place] [phone] * CBC auto differential (03/02/2025 10:40 AM EDT) Pathologist [facility] WBC 6.7 4.8 - 10.8 K/mcL LAB HEMETOLOGY METHOD 03/02/2025 12:17 PM EDT [facility] RBC 4.70 3.80 - 4.80 M/mcL LAB HEMETOLOGY METHOD 03/02/2025 12:17 PM EDT [facility] Hemoglobin 13.3 11.5 - 16.0 g/dL LAB HEMETOLOGY METHOD 03/02/2025 12:[facility] Hematocrit 39.4 35.0 - 47.0 % LAB HEMETOLOGY METHOD 03/02/2025 12:17 PM [facility] MCV 83.5 79.0 - 98.0 FL LAB HEMETOLOGY METHOD 03/02/2025 12:17 PM [facility] MCH 28.2 27.0 - 32.0 pcg LAB HEMETOLOGY METHOD 03/02/2025 12:17 PM [facility] MCHC 33.8 32.0 - 37.0 g/dL LAB HEMETOLOGY METHOD 03/02/2025 12:17 PM [facility] RDW 13.2 11.0 - 15.0 % LAB HEMETOLOGY METHOD 03/02/2025 12:17 PM [facility] Platelets 296 130 - 400 K/mcL LAB HEMETOLOGY METHOD 03/02/2025 12:17 PM [facility] MPV 9.6 7.0 - 11.0 FL LAB HEMETOLOGY METHOD 03/02/2025 12:17 PM [facility] NRBC 0.0 <1.0 % LAB HEMETOLOGY METHOD 03/02/2025 12:17 PM [facility] NRBC Absolute 0.00 <0.10 K/mcL LAB HEMETOLOGY METHOD 03/02/2025 12:17 PM [facility] Neutrophils Relative 55.8 % LAB HEMETOLOGY METHOD 03/02/2025 12:17 PM [facility] Lymphocytes Relative 34.9 % LAB HEMETOLOGY METHOD 03/02/2025 12:17 PM [facility] Monocytes Relative 8.1 % LAB HEMETOLOGY METHOD 03/02/2025 12:17 PM [facility] Eosinophils Relative 0.6 % LAB HEMETOLOGY METHOD 03/02/2025 12:17 PM EDT [facility] Basophils Relative 0.3 % LAB HEMETOLOGY METHOD 03/02/2025 12:17 PM EDT [facility] Immature Granulocytes Relative 0.3 % LAB HEMETOLOGY METHOD 03/02/2025 12:17 PM EDT [facility] Neutrophils Absolute 3.72 1.50 - 7.00 K/mcL LAB HEMETOLOGY METHOD 03/02/2025 12:17 PM EDT [facility] Lymphocytes Absolute 2.33 1.00 - 5.00 K/mcL LAB HEMETOLOGY METHOD 03/02/2025 12:17 PM EDT [facility] Monocytes Absolute 0.54 0.20 - 1.00 K/mcL LAB HEMETOLOGY METHOD 03/02/2025 12:17 PM EDT [facility] Eosinophils Absolute 0.04 0.00 - 0.50 K/mcL LAB HEMETOLOGY METHOD 03/02/2025 12:17 PM EDT [facility] Basophils Absolute 0.02 0.00 - 0.20 K/mcL LAB HEMETOLOGY METHOD 03/02/2025 12:17 PM EDT [facility] Immature Granulocytes Absolute 0.02 0.00 - 0.03 K/mcL LAB HEMETOLOGY METHOD 03/02/2025 12:17 PM [facility] Blood Venous blood specimen / Unknown Venipuncture / Unknown 03/02/2025 10:40 AM EDT 03/02/2025 10:40 AM EDT us Zachery Mckeon MD LAB BLOOD ORDERABLES Final Result [facility] [address] [place] [address], * Insulin, total (03/02/2025 10:40 AM EDT) Insulin 4.4 3.0 - 25.0 mcIU/mL LAB CHEMISTRY METHOD 03/02/2025 2:06 PM EDT [facility] Blood Venous blood specimen / Unknown Venipuncture / Unknown 03/02/2025 10:40 AM EDT 03/02/2025 10:40 AM EDT Narrative [facility] - 03/02/2025 2:06 PM EDT Insulin reference range based on fasting status. Insulin values vary in non-fasting individuals. Zachery Mckeon MD LAB BLOOD ORDERABLES Final Result [facility] [address] [place] [address], [place] [phone] * Proinsulin (03/02/2025 10:40 AM EDT) [facility] Proinsulin, Intact <2.0 <=7.2 pmol/L 03/06/2025 6:55 PM EDT [facility] Comment: Performed By: [facility] [address] [place] [id number] Senior Staff Specialized Employment: Jose Messer MD, PhD CLIA Number: [id number] Blood Venous blood specimen / Unknown Venipuncture / Unknown 03/02/2025 10:40 AM EDT 03/02/2025 10:40 AM EDT Zachery Mckeon MD LAB BLOOD ORDERABLES Final Result [facility] [address] [place] [address] * C-peptide (03/02/2025 10:40 AM EDT) [facility] C-Peptide 1.34 0.80 - 3.90 ng/mL LAB CHEMISTRY METHOD 03/02/2025 2:41 PM EDT [facility] Blood Venous blood specimen / Unknown Venipuncture / Unknown 03/02/2025 10:40 AM EDT 03/02/2025 10:40 AM EDT Zachery Mckeon MD LAB BLOOD ORDERABLES Final Result Performing Organization Address [facility]/ZIP Co de Phone Number [facility] [address] [place] [address], [place] [phone] * Hemoglobin A1c (03/02/2025 10:40 AM EDT) Pathologist [facility] Hemoglobin A1C 5.1 <6.5 % LAB CHEMISTRY METHOD 03/02/2025 1:46 PM EDT [facility] Mean Bld Glu Estim. 100 mg/dL LAB CHEMISTRY METHOD 03/02/2025 1:46 PM EDT [facility] Blood Venous blood specimen / Unknown Venipuncture / Unknown 03/02/2025 10:40 AM EDT 03/02/2025 10:40 AM EDT Zachery Mckeon MD LAB BLOOD ORDERABLES Final Result Performing Organization Address City/[facility]/ZIP Co de Phone Number [facility] [address] [place] [address], [place] [phone] * (ABNORMAL) Basic metabolic panel (03/02/2025 10:40 AM EDT) [facility] Sodium 135 133 - 145 mmol/L LAB CHEMISTRY METHOD 03/02/2025 1:04 PM EDT [facility] Potassium 3.6 3.5 - 5.5 mmol/L LAB CHEMISTRY METHOD 03/02/2025 1:04 PM EDT [facility] Chloride 101 96 - 110 mmol/L LAB CHEMISTRY METHOD 03/02/2025 1:04 PM EDT [facility] CO2 29 21 - 32 mmol/L LAB CHEMISTRY METHOD 03/02/2025 1:04 PM EDT [facility] Anion Gap 5 3 - 11 LAB CHEMISTRY METHOD 03/02/2025 1:04 PM EDT [facility] Glucose 84 70 - 100 mg/dL LAB CHEMISTRY METHOD 03/02/2025 1:04 PM EDT [facility] BUN 8 5 - 25 mg/dL LAB CHEMISTRY METHOD 03/02/2025 1:04 PM EDT [facility] Creatinine 0.47(L) 0.50 - 1.10 mg/dL LAB CHEMISTRY METHOD 03/02/2025 1:04 PM EDT [facility] eGFR 135 >=60 mL/min/1. 73m2 LAB CHEMISTRY METHOD 03/02/2025 1:04 PM EDT [facility] Comment:Calculation based on the Chronic Kidney Disease Epidemiology Collaboration (CKD-EPI) equation refit without adjustment for race. BUN/Creatinine Ratio 17.0 LAB CHEMISTRY METHOD 03/02/2025 1:04 PM EDT [facility] Calcium 9.3 8.5 - 10.5 mg/dL LAB CHEMISTRY METHOD 03/02/2025 1:04 PM EDT [facility] Blood Venous blood specimen / Unknown Venipuncture / Unknown 03/02/2025 10:40 AM EDT 03/02/2025 10:40 AM EDT Zachery Mckeon MD LAB BLOOD ORDERABLES Final Result [facility] [address] [place] [address], * Depression Screening (03/02/2024) Depression Screening abstracted Luz Provider HEALTH MAINTENANCE Final Result * Pap smear (11/11/2023) 11/11/2023 Narrative HISTORICAL TESTING LAB RESULTING AGENCY - 11/17/2023 1:11 PM EDT [id number] THINPREP PAP, IMAGED: NEGATIVE FOR SQUAMOUS INTRAEPITHELIAL LESION AND MALIGNANCY TELMA GONSALES , CT(ASCP) (CASE ELECTRONICALLY SIGNED 11 17 2023) ADEQUACY: SATISFACTORY ENDOCERVICAL/TRANSFORMATION ZONE COMPONENT ABSENT. SOURCE: THINPREP PAP HPV IF ASCUS, CERVICAL, IMAGED CLINICAL INFORMATION: HPV IF DIAGNOSIS OF ASCUS. HORMONES, PAP HX NEGATIVE, [Z01.419] Result [facility] Brenda PARKS LAB CYTOLOGY ORDERABLES Final Result HISTORICAL TESTING LAB RESULTING AGENCY * (ABNORMAL) Lipid panel (01/01/2023) LDL/HDL Ratio 3 0 - 4 Triglycerides 66 0 - 150 mg/dL Cholesterol 227(A) 0 - 200 mg/dL HDL 70 >=40 mg/dL LDL Cholesterol 144(A) 0 - 100 mg/dL Blood Venous blood specimen / Unknown Result [facility] Historical Provider LAB BLOOD ORDERABLES Luisa l Result * HIV Screening (04/15/2019) Pathologist [facility] HIV Screening abstracted Historical Provider MD HEALTH MAINTENANCE Final Result * Hepatitis C Screening (04/15/2019) Pathologist [facility] Hepatitis C Screening abstracted Historical Provider MD HEALTH MAINTENANCE Final Result * Gonorrhea/Chlamydia Screening (03/31/2018) Pathologist [facility] Gonorrhea/Chla mydia Screening abstracted Historical Provider HEALTH MAINTENANCE Final Result from Last 3 Months or Most Recently Relevant to Health Maintenance Insurance [facility] [employer] Care Teams Office Assistant Receptionist Relationship Specialty Start Date End Date Zachery Mckeon MD [address] [place] [address] PCP - General Internal Medicine 12/04/21
--- OUTSIDE RECORDS SUMMARY | 2025-04-16 14:34 | XMS_ITS | Clinical Summary ---
Author Organization [facility] Address [address] [place] [id number] Care Team Providers Care Brass Buffer Name Role Phone Camille Garza MD Primary Care Provider [phone] Source Comments Please note that some or [...] so, obtain the minor's consent prior to disclosure.[facility]'s Allergies Active Allergy Reactions Criticality Noted [...] HIV SCREENING 02/01/2012 COVID-19 Vaccine (2 - 2024-2 6 season) 2025 10/06/2020 INFLUENZA (#1) 2025 NIRSEVIMAB VACCINES UNDER 8 MONTHS Aged Out No longer eligible b ased on patient's age to complete this topic Insurance [facility] [employer] Care Teams Brass Buffer Relationship Specialty Start Date End Date Camille Garza MD [address] [place] [address] PCP - General Orthopaedic Surgery 02/07/22
--- OUTSIDE RECORDS SUMMARY | 2025-04-16 14:34 | XMS_ITS | Clinical Summary ---
Author Organization [facility] Address [address] [place] [address] Care Team Providers Care Digital Program Manager Name Role Phone Zachery Mckeon MD Primary [...] Hepatitis C Screening 1999 Depression Screening 2011 Preventative Health Evaluation 2017 Cervical Cancer Screening (Pap Smear) 02/01/2020 COVID-19 Vaccine ( season) 2025 10/06/2020 Influenza Vaccine (#1) 2025 3, 05/03/2021, 04/19/2020, Additional history exists DTap / Tdap / Td (8 - Td or Tdap) 05/03/2031 05/03/2021, 01/01/2011, 04/11/2004, Additional history exists Hepatitis B Vaccines Completed 1999, 1999, 1999 Pneumococcal Vaccine Completed 09/22/2000, 05/26/20 00 RSV Ped < 20 months Aged Out No longe r eligible based on patient's age to complete this topic Care Teams Digital Program Manager Relationship Specialty Start Date End Date Zachery Mckeon MD [address] [place] [address] [phone] PCP - General Hospitalist Medicine 03/06/23
[2025-04-16 14:38] LABS: Hematocrit 40.2 % (37.0-47.0); Hemoglobin 13.3 g/dl (12.0-16.0); Imm Gran Abs Auto 0.02 X10*3/uL (0.00-0.03); Imm Gran Pct Auto 0.4 % (0.0-0.4); Lymphocytes Absolute Auto 1.7 X10*3/uL (1.2-4.9); Mean Corpuscular HGB Conc 33.1 g/dl (31.0-35.0); Mean Corpuscular Hemoglobin 27.3 pg (27.0-33.0); Mean Corpuscular Volume 82.4 fL (80.0-98.0); NRBC Abs Auto 0.000 X10*3/uL (0.0-0.012); NRBC Pct Auto 0.0 /100WBC (0.0-0.2); Platelet Count 280 X10*3/uL (160-400); Red Blood Count 4.88 X10*6/uL (4.20-5.50); White Blood Count 5.1 X10*3/uL (4.8-10.8)
[2025-04-16 14:46] LABS: INTERNATIONAL NORM RATIO 1.2 (0.9-1.1); Prothrombin Time 13.2 SEC (10.9-12.4)
[2025-04-16 14:50] LABS: Alanine Aminotransferase 26 U/L (0-31); Albumin Level 4.4 g/dL (3.5-5.0); Alkaline Phosphatase 60 U/L (39-117); Anion Gap 14 (12-20); Aspartate Amino Transferase 27 U/L (5-31); Blood Urea Nitrogen 10 mg/dL (9-16); Calcium 8.7 mg/dL (8.4-10.2); Carbon Dioxide 21 mmol/L (22-29); Chloride 108 mmol/L (96-108); Creatinine Clr Calc Pharmacy 91.7; Estimated Glomerular Filt Rate > 60; Lipase 21 U/L (8-78); Magnesium 1.9 mg/dL (1.6-2.6); Potassium 3.6 mmol/L (3.3-5.1); Sodium 139 mmol/L (135-145); Total Protein 6.8 g/dL (6.5-8.0)
[2025-04-16 14:59] LABS: Troponin-I High Sensitivity < 2.7 ng/L (<3.5-17.0)
[2025-04-16 15:51] LABS: Appearance Urine Clear; Glucose Urine UA Negative (Negative); PH 6.5 (5.0-9.0); Specific Gravity - Urine 1.010 (1.005-1.025)
[2025-04-16 18:22] VITALS: BP 106/54; PULSE 78; RESP 16; O2SAT 99
[2025-04-16 18:53] VITALS: BP 106/54; PULSE 78; RESP 16; TEMP 36.6; O2SAT 99
== END 2025-04-16 18:56 | disposition home or self-care (01) ==
PROVIDERS: Physician Assistant Medical; Emergency Provider Emergency Medicine; PCP Internal Medicine
DX: R10.9 Unspecified abdominal pain (principal); R56.9 Unspecified convulsions; R39.198 Other difficulties with micturition; G80.9 Cerebral palsy, unspecified
CPT/HCPCS: 36415; 74018; 80053; 81003; 82947; 83605; 83690; 83735; 84484; 85025; 85610; 99283; 99285

== ENCOUNTER → 2025-04-16 14:28 | Outpatient (BNV) | payer OTHER, SELFPAY | PROVIDERS: Emergency Provider Emergency Medicine; PCP Internal Medicine; Visit Provider Nuclear Medicine | DX: R10.9 Unspecified abdominal pain (principal) | CPT/HCPCS: 74018 ==